=== PATIENT | female | born 1950 | race Caucasian/White ===

== ENCOUNTER 2016-11-22 07:20 | Emergency (ER) | payer MEDICARE, OTHER ==
[2016-11-22] MEDS ORDERED: solu-CORTEF 250MG IM ONE (08:00)
[2016-11-22] MEDS ORDERED: solu-CORTEF 250MG ONE (08:03)
--- NOTE | 2016-11-22 08:08 | ERPHSYRPT ---
- History of Present Illness Time Seen by Provider: 11/22/16 08:03 Source: patient Exam Limitations: no limitations Patient Subjective Stated Complaint: pt reports right arm pain beginning on -denies injury-reports difficutly closing hand-pt has hx of RA Triage Nursing Assessment: pt pale warm et dry-a & o x 3-no obvious injury-pt denies injury-radial pulse regular-swelling noted to hand-pt instructed to take splint off during triage Physician History: pt reports right arm pain beginning on -denies injury-reports difficutly closing hand-pt has hx of RA. Occurred: last week Method of Injury: other (RA flare up) Quality: constant, stabbing, throbbing Severity of Pain-Max: severe Severity of Pain-Current: severe Extremities Pain Location: wrist: right, hand: right Modifying Factors: Improves With: nothing Associated Symptoms: none Body Map: 1 - swelling Allergies/Adverse Reactions: Tetracyclines Allergy (Severe, Verified 11/22/16 07:37) Swelling tramadol Allergy (Severe, Verified 11/22/16 07:37) Shortness of Breath abatacept [From Orencia] Allergy (Intermediate, Verified 11/22/16 07:37) Itching ciprofloxacin Allergy (Intermediate, Verified 11/22/16 07:37) Itching hydroxychloroquine sulfate [From Plaquenil] Allergy (Intermediate, Verified 07:37) Rash phenazopyridine HCl [From Pyridium] Allergy (Intermediate, Verified 11/22/16 07: 37) Rash Sulfa (Sulfonamide Antibiotics) Allergy (Intermediate, Verified 11/22/16 07:37) Rash hazelnut Allergy (Verified 11/22/16 07:37) oxycodone HCl [From OxyContin] Adverse Reaction (Intermediate, Verified 07:37) HALLUCINATION peanut Adverse Reaction (Intermediate, Verified 11/22/16 07:37) EYE EDEMA Home Medications: Citalopram Hydrobromide [Citalopram HBr] 10 mg PO DAILY 01/21/15 [History] Gabapentin [Neurontin] 300 mg PO TID 01/21/15 [History] Hydrocodone Bit/Acetaminophen [Hydrocodon-Acetaminophn 10-325] 1 each PO UD PRN 01/21/15 [History] Leucovorin Calcium 5 mg PO UD 01/21/15 [History] Lisinopril/Hydrochlorothiazide [Lisinopril-Hctz 20-12.5 mg Tab] 1 each PO DAILY 01/21/15 [History] Methotrexate Sodium [Methotrexate] 2.5 mg PO UD 01/21/15 [History] Calcium [Hi-Marty] 1 tab PO DAILY 01/15/16 [History] Magnesium 1 tab PO DAILY 01/15/16 [History] Vit C/E/Zn/Coppr/Lutein/Zeaxan [Preservision Areds 2 Softgel] 1 tab PO DAILY [History] Hx Tetanus, Diphtheria Vaccination/Date Given: Yes Hx Influenza Vaccination/Date Given: No Hx Pneumococcal Vaccination/Date Given: No Immunizations Up to Date: Yes - Review of Systems Constitutional: No Fever, No Chills Eyes: No Symptoms Ears, Nose, & Throat: No Symptoms Respiratory: No Cough, No Dyspnea Cardiac: No Chest Pain, No Edema, No Syncope Abdominal/Gastrointestinal: No Abdominal Pain, No Nausea, No Vomiting, No Diarrhea Genitourinary Symptoms: No Dysuria Musculoskeletal: Joint Redness, Joint Pain, Joint Swelling (right hand), No Back Pain, No Neck Pain Skin: No Rash Neurological: No Dizziness, No Focal Weakness, No Sensory Changes Psychological: No Symptoms Endocrine: No Symptoms All Other Systems: Reviewed and Negative - Past Medical History Pertinent Past Medical History: Yes Neurological History: No Pertinent History ENT History: Macular Degeneration Cardiac History: No Pertinent History Respiratory History: Sleep Apnea Endocrine Medical History: No Pertinent History Musculoskeletal History: Arthritis, Fibromyalgia, Rheumatoid Arthritis GI Medical History: No Pertinent History History: No Pertinent History Psycho-Social History: Depression Female Reproductive Disorders: No Pertinent History - Past Surgical History Past Surgical History: Yes Gastrointestinal: Cholecystectomy Musculoskeletal: Joint Replacement, Orthopedic Surgery Female Surgical History: Hysterectomy - Social History Smoking Status: Never smoker Exposure to second hand smoke: No Drug Use: none Patient Lives Alone: No - Nursing Vital Signs Nursing Vital Signs: Initial Vital Signs Temperature 98.4 F Temperature Source Oral Pulse Rate 65 Respiratory Rate 20 Blood Pressure [] 155/68 Pain Intensity 4 - Physical Exam General Appearance: no apparent distress Eyes, Ears, Nose, Throat Exam: normal ENT inspection Neck Exam: normal inspection Wrist Exam: limited ROM, soft tissue tenderness, swelling Hand Exam: limited ROM, soft tissue tenderness, stiffness, swelling SpO2: 96 Oxygen Delivery: Room Air - Course Nursing assessment & vital signs reviewed: Yes - Radiology Exams Wrist X-ray Interpretation: Reviewed by me (swollen metacarpophalangeal joints) Hand X-ray Interpretation: Reviewed by me (erosive joints) Ordered Tests: Active Orders 24 hr Category Date Time Status HAND (MINIMUM 3 VIEWS) Stat Exams 11/22/16 07:57 Taken Medication Summary Discontinued Medications Generic Name Dose Route Start Last Admin Trade Name Freq PRN Reason Stop Dose Admin Hydrocortisone Sodium Succinate 250 mg 11/22/16 08:00 11/22/16 08:06 Solu-Cortef 250mg IM 11/22/16 08:01 250 mg STAT ONE Administration Hydrocortisone Sodium Succinate Confirm 11/22/16 08:03 Solu-Cortef 250mg Administered 11/22/16 08:04 Dose 250 mg .ROUTE .STK-MED ONE - Progress Progress: improved, pain not gone completely Counseled pt/family regarding: diagnosis, need for follow-up, rad results - Departure Time of Disposition: 08:33 Departure Disposition: Home Clinical Impression: Rheumatoid arthritis flare Condition: Stable Critical Care Time: No Referrals: ANILA ALY [Primary Care Provider] - Additional Instructions: Please follow the instructions given to you. Please take your medication as prescribed if given. If symptoms recur or get worse, come back to the emergency room if you cannot reach your primary care physician, or call your primary care physician for an appointment. Again if your symptoms get worse, come back to the emergency room. Thanks for visiting emergency room, and let us take care of you.
[2016-11-22 08:52] VITALS: BP 151/62; PULSE 71; O2SAT 97
--- NOTE | 2016-11-22 10:09 | XRAY ---
Indication: Rheumatoid arthritis flare up. No known injury. Comparison: None 3 views of the right hand demonstrates mild osteopenia, mild degenerative changes of all IP joints, and moderate degenerative changes of first metacarpal multangular articulation. No other bony, articular, or soft tissue abnormalities.
== END 2016-11-22 08:51 | disposition home or self-care (01) ==
LOC: ED 07:20
DX: M06.9 Rheumatoid arthritis, unspecified (principal); M25.441 Effusion, right hand; M79.641 Pain in right hand
CPT/HCPCS: 73130; 96372; 99282; J1720

== ENCOUNTER 2020-04-23 12:00 | Observation (INO) | payer MEDICARE, OTHER ==
--- NOTE | 2020-04-23 12:36 | XRAY ---
Indication: Headache. Hypertension. Stroke. Multiple contiguous axial images obtained through the head without contrast. Comparison: None Age-appropriate global atrophy and minimal periventricular degenerative micro-ischemia bilaterally. Right basal ganglia and left external capsule remote appearing lacunar infarcts. No acute intracranial hemorrhage, abnormal extra-axial fluid collection, or mass effect. Fourth ventricle is midline without hydrocephalus. Bony calvarium intact. Tiny fluid leveling right sphenoid sinus. Partial opacification left mastoid air cells. Impression: 1. Nonacute senile brain. 2. Remote lacunar infarcts right basal ganglia and left external capsule. 3. Incidental right sphenoid sinus fluid leveling and partial opacification left mastoid air cells presumed inflammatory.
[2020-04-23 12:40] LABS: Absolute Neutrophil Ct (ANC) 3.11 (1.4-6.9); BASOPHIL % 0.7 % (0.0-0.4); Basophil (Absolute #) 0.04 (0-0.4); Eosinophil % 2.9 % (0.00-5.0); Eosinophil (Absolute #) 0.17 (0-0.5); Hematocrit 41.8 % (35-47); Hemoglobin 13.5 gm/dl (12.0-16.0); Lymphocyte (Absolute #) 1.84 (1.0-4.6); Lymphocytes % 31.1 % (24.0-44.0); Mean Cell Volume 95.7 fl (78-100); Mean Corpuscular Hemoglobin 30.9 pg (26-32); Mean Corpuscular Hgb Concent. 32.3 g/dl (32-36); Mean Platelet Volume 9.2 fl (7.5-11.0); Monocyte (Absolute #) 0.75 (0.0-1.3); Monocytes % 12.7 % (0.0-12.0); Neutrophil % 52.6 % (36.0-66.0); Platelet Count 261 K/mm3 (150-450); Red Blood Count 4.37 M/mm3 (4.1-5.4); Red Cell Distribution Width 13.9 % (11.5-14.0); White Blood Count 5.9 K/mm3 (4.0-10.5)
[2020-04-23 12:47] LABS: Appearance CLEAR (CLEAR); Bacteria RARE /HPF (NEGATIVE); Bilirubin NEGATIVE (NEGATIVE); Blood NEGATIVE Ery/ul (0-5); Epithelial Cells RARE /HPF (FEW); Glucose NEGATIVE (NEGATIVE); Ketones NEGATIVE (NEGATIVE); Leukocyte Esterase MODERATE (NEGATIVE); Nitrite NEGATIVE (NEGATIVE); Protein,Urine Dip NEGATIVE (Negative); Urobilinogen NEGATIVE mg/dL (0-1)
[2020-04-23] MEDS ORDERED: APRESOLINE 20 MG/ML INJ IV ONE (12:48)
[2020-04-23] MEDS ORDERED: APRESOLINE 20 MG/ML INJ ONE (12:51)
--- NOTE | 2020-04-23 12:52 | XRAY ---
Indication: Short of breath. Comparison: None Portable chest demonstrates normal heart and lungs. Bony thorax intact with minimal degenerative changes.
--- NOTE | 2020-04-23 12:57 | ERPHSYRPT ---
- History of Present Illness Time Seen by Provider: 04/23/20 12:15 Source: patient Exam Limitations: no limitations Patient Subjective Stated Complaint: HTN Triage Nursing Assessment: Patient brought to ED via w/c and transferred self to bed. Patient A+O X3. Patient's skin pink, warm and dry. Patient went to [facility] because she wasn't feeling right. [facility] sent patient down to ED due to HTN. Patient states she has a a throbbing headache and the back of her head feels numb 5/10. Patient able to CALIX well. accu check at this time 96. Lungs clear a/p martínez. No edema noted. Physician History: Patient is a 69-year-old female presents to our ED as referral from [facility] for evaluation of hypertension. Patient initially went to [facility] for further evaluation as she was experiencing a frontal headache and numbness to the back of her head. Symptoms started this morning. Symptoms are mild to moderate in intensity. No specific worsening or improving factors. No associated extremity numbness or weakness. No nausea or vomiting. No blurred vision. Timing/Duration: today Severity: moderate Modifying Factors: Improves With: nothing Associated Symptoms: No nausea, No vomiting, No abdominal pain, No shortness of breath, No chest pain, No loss of appetite, No rash, No syncope Allergies/Adverse Reactions: hazelnut Allergy (Severe, Verified 04/23/20 12:09) Tightness of Throat Tetracyclines Allergy (Severe, Verified 04/23/20 12:09) Anaphylactic Reaction tramadol Allergy (Severe, Verified 04/23/20 12:09) Shortness of Breath abatacept [From Orencia] Allergy (Intermediate, Verified 04/23/20 12:09) Itching ciprofloxacin Allergy (Intermediate, Verified 04/23/20 12:09) Itching hydroxychloroquine sulfate [From Plaquenil] Allergy (Intermediate, Verified 04/23/20 12:09) Rash phenazopyridine HCl [From Pyridium] Allergy (Intermediate, Verified 04/23/20 12:09) Rash Sulfa (Sulfonamide Antibiotics) Allergy (Intermediate, Verified 04/23/20 12:09) Rash oxycodone HCl [From OxyContin] Adverse Reaction (Intermediate, Verified 04/23/20 12:09) HALLUCINATION Home Medications: Gabapentin [Neurontin] 1,200 mg PO HS 01/21/15 [History] Hydrocodone Bit/Acetaminophen [Hydrocodon-Acetaminophn 10-325] 1 each PO QID 01/21/15 [History] Leucovorin Calcium 5 mg PO WEEKLY 01/21/15 [History] Lisinopril/Hydrochlorothiazide [Lisinopril-Hctz 20-12.5 mg Tab] 2 tablet PO DAILY 01/21/15 [History] metHOTREXate sodium [Methotrexate] 2.5 mg PO UD 01/21/15 [History] Vit C/E/Zn/Coppr/Lutein/Zeaxan [Preservision Areds 2 Softgel] 1 tab PO BID 01/15/16 [History] Aspirin EC 81 mg [Ecotrin 81 mg] 81 mg PO DAILY 04/10/19 [History] Aflibercept [Eylea] 2 mg IO UD 09/29/19 [History] Duloxetine HCl 30 mg [Cymbalta 30 MG Capsule] 30 mg PO DAILY 09/29/19 [H istory] Amoxicillin 500 mg PO UD 11/24/19 [History] Calcium Carbonate/Vitamin D3 [Calcium 500+D Tablet Chew] 2 tab PO BID 02/07/20 [History] Golimumab [Simponi] 100 mg IV UD 02/07/20 [History] Magnesium Oxide 400 mg [Mag-Ox 400] 400 mg PO DAILY 02/07/20 [History] Hx Tetanus, Diphtheria Vaccination/Date Given: Yes Hx Influenza Vaccination/Date Given: Yes Hx Pneumococcal Vaccination/Date Given: No Immunizations Up to Date: Yes Travel Risk - International Travel Have you traveled outside of the country in past 3 weeks: No - Coronavirus Screening Are you exhibiting any of the following symptoms?: No Symptoms: Headaches/Body Aches/Fatigue Close contact with a COVID-19 positive Pt in past 14-21 Days: No - Review of Systems Constitutional: No Symptoms, No Fever, No Chills Eyes: No Symptoms Ears, Nose, & Throat: No Symptoms Respiratory: No Symptoms, No Cough, No Dyspnea Cardiac: No Symptoms, No Chest Pain, No Edema, No Syncope Abdominal/Gastrointestinal: No Symptoms, No Abdominal Pain, No Nausea, No Vomiting, No Diarrhea Genitourinary Symptoms: No Symptoms, No Dysuria Musculoskeletal: No Symptoms, No Back Pain, No Neck Pain Skin: No Rash Neurological: No Symptoms, No Dizziness, No Focal Weakness, No Sensory Changes Psychological: No Symptoms Endocrine: No Symptoms Hematologic/Lymphatic: No Symptoms Immunological/Allergic: No Symptoms All Other Systems: Reviewed and Negative - Past Medical History Pertinent Past Medical History: Yes Neurological History: No Pertinent History ENT History: Cataracts, Macular Degeneration Cardiac History: Hypertension Respiratory History: No Pertinent History Endocrine Medical History: No Pertinent History Musculoskeletal History: Fibromyalgia, Rheumatoid Arthritis GI Medical History: No Pertinent History History: No Pertinent History Psycho-Social History: Depression Female Reproductive Disorders: Fibroids - Past Surgical History Past Surgical History: Yes Neuro Surgical History: No Pertinent History Cardiac: No Pertinent History Respiratory: No Pertinent History Gastrointestinal: Appendectomy, Cholecystectomy Genitourinary: No Pertinent History Musculoskeletal: Joint Replacement Female Surgical History: Hysterectomy Other Surgical History: martínez knee replacement, carpal tunnel on right , facial lift - Social History Smoking Status: Never smoker Exposure to second hand smoke: No Drug Use: none Patient Lives Alone: No - Nursing Vital Signs Nursing Vital Signs: Initial Vital Signs Pulse Rate 80 04/23/20 12:10 Respiratory Rate 19 04/23/20 12:10 Blood Pressure 228/90 04/23/20 12:10 O2 Sat by Pulse Oximetry 99 04/23/20 12:10 Pain Scale Pain Intensity 5 - Physical Exam General Appearance: no apparent distress, alert Eye Exam: PERRL/EOMI, eyes nml inspection Ears, Nose, Throat Exam: normal ENT inspection, TMs normal, pharynx normal, moist mucous membranes Neck Exam: normal inspection, non-tender, supple, full range of motion Respiratory Exam: normal breath sounds, lungs clear, No respiratory distress Cardiovascular Exam: regular rate/rhythm, normal heart sounds, normal peripheral pulses Gastrointestinal/Abdomen Exam: soft, normal bowel sounds, No tenderness, No mass Pelvic Exam: not done Back Exam: normal inspection, normal range of motion, No CVA tenderness, No vertebral tenderness Extremity Exam: normal inspection, normal range of motion, pelvis stable Neurologic Exam: alert, oriented x 3, cooperative, normal mood/affect, nml cerebellar function, nml station & gait, sensation nml, No motor deficits, No sensory deficit, No disoriented, No confusion, No intoxicated appearance, No motor weakness, No facial droop, No abnormal gait, No abnormal cerebellar tests, No abnormal sales analyst II-XII Skin Exam: normal color, warm, dry, No rash Lymphatic Exam: No adenopathy SpO2 Interpretation: normal SpO2: 97 O2 Delivery: Room Air - Course Nursing assessment & vital signs reviewed: Yes EKG Interpreted by Me: RATE (64), Sinus Rhythm, NORMAL AXIS, NORMAL INTERVALS - Radiology Exams Chest X-ray Interpretation: Teleradiologist Report (Portable chest demonstrates normal heart and lungs. Bony thorax intact with minimal degenerative changes.) - CT Exams Head CT Interpretation: Tele-radiologist Report (Acute senile brain, remote lacunar infarcts right basal ganglia and left external capsule, incidental right s phenoid sinus fluid leveling and partition opacification of left mastoid air cells presumably inflammatory.) Ordered Tests: Active Orders 24 hr Category Date Time Status Linen Supervisor STAT Care 04/23/20 12:17 Active EKG-ER Only STAT Care 04/23/20 12:15 Active IV Insertion STAT Care 04/23/20 12:15 Active Pulse Oximetry (ED) STAT Care 04/23/20 12:15 Active CHEST 1 VIEW (PORTABLE) Stat Exams 04/23/20 12:17 Completed HEAD WITHOUT CONTRAST [CT] Stat Exams 04/23/20 12:14 Completed CBC W DIFF Stat Lab 04/23/20 12:30 Completed CMP Stat Lab 04/23/20 12:30 Completed MAGNESIUM Stat Lab 04/23/20 12:30 Completed NT PRO BNP Stat Lab 04/23/20 12:30 Completed TROPONIN Q3H Lab 04/23/20 12:30 Completed TROPONIN Q3H Lab 04/23/20 15:30 Ordered TROPONIN Q3H Lab 04/23/20 18:30 Ordered TROPONIN Q3H Lab 04/23/20 21:30 Ordered TROPONIN Q3H Lab 04/24/20 00:30 Ordered UA W/RFX UR CULTURE Stat Lab 04/23/20 12:30 Completed Transfer Order Routine Transfer 04/23/20 Ordered Medication Summary Generic Name Dose Route Start Last Admin Trade Name Freq PRN Reason Stop Dose Admin Ceftriaxone Sodium/Dextrose 1 g in 50 mls @ 100 mls/hr 04/23/20 13:29 04/23/20 13:45 Rocephin 1 Gm-D5w 50 Ml Bag IV 04/23/20 13:58 100 ml/hr STAT STA 100 mls/hr Administration Discontinued Medications Generic Name Dose Route Start Last Admin Trade Name Freq PRN Reason Stop Dose Admin Aspirin 324 mg 04/23/20 13:47 Baby Aspirin 81 Mg Chew PO 04/23/20 13:48 STAT ONE Hydralazine HCl 10 mg 04/23/20 12:48 04/23/20 12:53 Apresoline 20 Mg/Ml Inj IV 04/23/20 12:49 10 mg STAT ONE Administration Hydralazine HCl Confirm 04/23/20 12:51 Apresoline 20 Mg/Ml Inj Administered 04/23/20 12:52 Dose 20 mg .ROUTE .STK-MED ONE Ceftriaxone Sodium/Dextrose Confirm 04/23/20 13:42 Rocephin 1 Gm-D5w 50 Ml Bag Administered 04/23/20 13:43 Dose 1 g in 50 mls @ ud IV .STK-MED ONE Lab/Rad Data: Laboratory Result Diagrams 04/23/20 12:30 04/23/20 12:30 Laboratory Results 04/23/20 04/23/20 04/23/20 Range/Units 12:30 12:30 12:30 WBC (4.0-10.5) K/mm3 RBC (4.1-5.4) M/mm3 Hgb (12.0-16.0) gm/dl Hct (35-47) % MCV (78-100) fl MCH (26-32) pg MCHC (32-36) g/dl RDW (11.5-14.0) % Plt Count (150-450) K/mm3 MPV (7.5-11.0) fl Gran % (36.0-66.0) % Eos # (Auto) (0-0.5) Absolute Lymphs (auto) (1.0-4.6) Absolute Monos (auto) (0.0-1.3) Lymphocytes % (24.0-44.0) % Monocytes % (0.0-12.0) % Eosinophils % (0.00-5.0) % Basophils % (0.0-0.4) % Absolute Granulocytes (1.4-6.9) Basophils # (0-0.4) Sodium 141 (137-145) mmol/L Potassium 3.7 (3.5-5.1) mmol/L Chloride 103 (98-107) mmol/L Carbon Dioxide 31 H (22-30) mmol/L Anion Gap 9.8 (5-15) MEQ/L BUN 17 (7-17) mg/dL Creatinine 0.64 (0.52-1.04) mg/dL Estimated GFR > 60.0 ML/MIN Glucose 99 (74-106) mg/dL Calcium 9.8 (8.4-10.2) mg/dL Magnesium 2.2 (1.6-2.3) mg/dL Total Bilirubin 0.40 (0.2-1.3) mg/dL AST 31 (14-36) U/L ALT 24 (0-35) U/L Alkaline Phosphatase 93 (38-126) U/L Troponin I < 0.012 (0.000-0.034) ng/mL NT-Pro-B Natriuret Pep 270 (0-900) pg/mL Serum Total Protein 7.9 (6.3-8.2) g/dL Albumin 4.6 (3.5-5.0) g/dL Urine Color YELLOW (YELLOW) Urine Appearance CLEAR (CLEAR) Urine pH 7.0 (5-6) Ur Specific Gilmer 1.010 (1.005-1.025) Urine Protein NEGATIVE (Negative) Urine Ketones NEGATIVE (NEGATIVE) Urine Blood NEGATIVE (0-5) Joseluis/ul Urine Nitrite NEGATIVE (NEGATIVE) Urine Bilirubin NEGATIVE (NEGATIVE) Urine Urobilinogen NEGATIVE (0-1) mg/dL Ur Leukocyte Esterase MODERATE (NEGATIVE) Urine WBC (Auto) 6-10 (0-5) /HPF Urine RBC (Auto) 3-5 (0-2) /HPF U Epithel Cells (Auto) RARE (FEW) /HPF Urine Bacteria (Auto) RARE (NEGATIVE) /HPF Urine Culture Reflexed NO (NO) Urine Glucose NEGATIVE (NEGATIVE) mg/dL 04/23/20 Range/Units 12:30 WBC 5.9 (4.0-10.5) K/mm3 RBC 4.37 (4.1-5.4) M/mm3 Hgb 13.5 (12.0-16.0) gm/dl Hct 41.8 (35-47) % MCV 95.7 (78-100) fl MCH 30.9 (26-32) pg MCHC 32.3 (32-36) g/dl RDW 13.9 (11.5-14.0) % Plt Count 261 (150-450) K/mm3 MPV 9.2 (7.5-11.0) fl Gran % 52.6 (36.0-66.0) % Eos # (Auto) 0.17 (0-0.5) Absolute Lymphs (auto) 1.84 (1.0-4.6) Absolute Monos (auto) 0.75 (0.0-1.3) Lymphocytes % 31.1 (24.0-44.0) % Monocytes % 12.7 H (0.0-12.0) % Eosinophils % 2.9 (0.00-5.0) % Basophils % 0.7 (0.0-0.4) % Absolute Granulocytes 3.11 (1.4-6.9) Basophils # 0.04 (0-0.4) Sodium (137-145) mmol/L Potassium (3.5-5.1) mmol/L Chloride (98-107) mmol/L Carbon Dioxide (22-30) mmol/L Anion Gap (5-15) MEQ/L BUN (7-17) mg/dL Creatinine (0.52-1.04) mg/dL Estimated GFR ML/MIN Glucose (74-106) mg/dL Calcium (8.4-10.2) mg/dL Magnesium (1.6-2.3) mg/dL Total Bilirubin (0.2-1.3) mg/dL AST (14-36) U/L ALT (0-35) U/L Alkaline Phosphatase (38-126) U/L Troponin I (0.000-0.034) ng/mL NT-Pro-B Natriuret Pep (0-900) pg/mL Serum Total Protein (6.3-8.2) g/dL Albumin (3.5-5.0) g/dL Urine Color (YELLOW) Urine Appearance (CLEAR) Urine pH (5-6) Ur Specific Gilmer (1.005-1.025) Urine Protein (Negative) Urine Ketones (NEGATIVE) Urine Blood (0-5) Joseluis/ul Urine Nitrite (NEGATIVE) Urine Bilirubin (NEGATIVE) Urine Urobilinogen (0-1) mg/dL Ur Leukocyte Esterase (NEGATIVE) Urine WBC (Auto) (0-5) /HPF Urine RBC (Auto) (0-2) /HPF U Epithel Cells (Auto) (FEW) /HPF Urine Bacteria (Auto) (NEGATIVE) /HPF Urine Culture Reflexed (NO) Urine Glucose (NEGATIVE) mg/dL - Progress Progress: improved Progress Note: 04/23/20 13:39 Patient reassessed. She feels somewhat better. Patient received hydralazine for hypertension. Blood pressure improved. CT head reveals a sinusitis as well as old lacunar infarct, right basal ganglia and left external capsule. UA suggestive of urinary tract infection. Patient received a dose of Rocephin. In light of her symptoms, elevated blood pressure and CT findings we will admit patient for possible TIA/hypertensive urgency. Case discussed with Dr. Jonas who accepts admission to observation. Plan of care discussed with patient. She agrees to admission to [facility] for further evaluation and treatment. 04/23/20 13:42 04/23/20 13:[address] Dakota Will see patient in: hospital (observation) Counseled pt/family regarding: lab results, diagnosis, need for follow-up, rad results - Departure Departure Disposition: Observation Clinical Impression: Hypertensive urgency, Sinusitis, UTI (urinary tract infection), TIA (transient ischemic attack), Lacunar infarction Condition: Stable Critical Care Time: Yes Critical Care Time(excluding separately billable procedures): Critical 75-104 mins Referrals: ANILA ALY [Primary Care Provider] -
[2020-04-23 13:00] LABS: ALBUMIN 4.6 g/dL (3.5-5.0); ALKALINE PHOSPHATASE 93 U/L (38-126); ANION GAP 9.8 MEQ/L (5-15); BLOOD UREA NITROGEN 17 mg/dL (7-17); CHLORIDE 103 mmol/L (98-107); Calcium 9.8 mg/dL (8.4-10.2); Carbon Dioxide 31 mmol/L (22-30); Creatinine 1 0.64 mg/dL (0.52-1.04); Glucose 99 mg/dL (74-106); MAGNESIUM 2.2 mg/dL (1.6-2.3); NT PRO BNP 270 pg/mL (0-900); Potassium 3.7 mmol/L (3.5-5.1); SGOT/AST 31 U/L (14-36); SGPT/ALT 24 U/L (0-35); SODIUM 141 mmol/L (137-145); Total Protein 7.9 g/dL (6.3-8.2)
[2020-04-23] MEDS ORDERED: ROCEPHIN 1 Gm-D5w 50 ml Bag** 1 G/50 ML IVPB IV STA (13:29)
[2020-04-23] MEDS ORDERED: ROCEPHIN 1 Gm-D5w 50 ml Bag** 1 G/50 ML IVPB IV ONE (13:42)
[2020-04-23] MEDS ORDERED: BABY ASPIRIN 81 MG CHEW PO ONE (13:47)
[2020-04-23] MEDS ORDERED: BABY ASPIRIN 81 MG CHEW ONE (13:53)
[2020-04-23] MEDS ORDERED: Sodium Chloride 0.9% 1000 ML 1,000 ML IV SCH (14:16)
[2020-04-23] MEDS ORDERED: ULTRAM 50 MG PO PRN (14:39)
[2020-04-23] MEDS ORDERED: APRESOLINE 20 MG/ML INJ IV PRN (14:40)
[2020-04-23] MEDS ORDERED: xanAX 0.5 MG PO ONE (15:17)
[2020-04-23] MEDS ORDERED: GOLIMUMAB IV SCH (16:00)
[2020-04-23] MEDS ORDERED: AMOXICILLIN 500 MG PO SCH (16:00)
[2020-04-23] MEDS ORDERED: AFLIBERCEPT IO SCH (16:00)
[2020-04-23] MEDS ORDERED: LEUCOVORIN CALCIUM 5 MG PO SCH (16:00)
[2020-04-23] MEDS ORDERED: MEDICATION INTERVENTION PO SCH (16:15)
[2020-04-23] MEDS ORDERED: MEDICATION INTERVENTION MC SCH (16:15)
[2020-04-23] MEDS: Norco 10/325 MG Tablet PO SCH ×2 (17:04→21:35)
[2020-04-23] MEDS: Ocuvite Tablet PO SCH (21:35)
[2020-04-23] MEDS: Neurontin 400 MG PO SCH (21:35)
[2020-04-23] MEDS: xanAX 0.5 MG PO PRN (21:46)
[2020-04-23] MEDS ORDERED: xanAX 0.5 MG PO SCH (22:00)
[2020-04-23] MEDS ORDERED: [UNRECOGNIZED DRUG - OTHER] PO SCH (22:00)
[2020-04-24 04:50] LABS: Absolute Neutrophil Ct (ANC) 2.91 (1.4-6.9); BASOPHIL % 0.2 % (0.0-0.4); Basophil (Absolute #) 0.01 (0-0.4); Eosinophil % 3.2 % (0.00-5.0); Eosinophil (Absolute #) 0.18 (0-0.5); Hematocrit 38.9 % (35-47); Hemoglobin 12.8 gm/dl (12.0-16.0); Lymphocyte (Absolute #) 1.77 (1.0-4.6); Lymphocytes % 31.4 % (24.0-44.0); Mean Cell Volume 96.5 fl (78-100); Mean Corpuscular Hemoglobin 31.8 pg (26-32); Mean Corpuscular Hgb Concent. 32.9 g/dl (32-36); Mean Platelet Volume 9.2 fl (7.5-11.0); Monocyte (Absolute #) 0.77 (0.0-1.3); Monocytes % 13.7 % (0.0-12.0); Neutrophil % 51.5 % (36.0-66.0); Platelet Count 253 K/mm3 (150-450); Red Blood Count 4.03 M/mm3 (4.1-5.4); Red Cell Distribution Width 14.1 % (11.5-14.0); White Blood Count 5.6 K/mm3 (4.0-10.5)
[2020-04-24 05:35] LABS: ANION GAP 9.2 MEQ/L (5-15); BLOOD UREA NITROGEN 25 mg/dL (7-17); CHLORIDE 102 mmol/L (98-107); Calcium 9.2 mg/dL (8.4-10.2); Carbon Dioxide 32 mmol/L (22-30); Creatinine 1 0.79 mg/dL (0.52-1.04); Glucose 105 mg/dL (74-106); Potassium 3.9 mmol/L (3.5-5.1); SODIUM 139 mmol/L (137-145); TROPONIN < 0.012 ng/mL (0.000-0.034)
[2020-04-24] MEDS: Norco 10/325 MG Tablet PO SCH ×4 (07:39→21:05)
[2020-04-24] MEDS ORDERED: HYDROCHLOROTHIAZIDE PO SCH (10:00)
[2020-04-24] MEDS ORDERED: [UNRECOGNIZED DRUG - OTHER] PO SCH (10:00)
[2020-04-24] MEDS ORDERED: LISINOPRIL PO SCH (10:00)
[2020-04-24] MEDS: ECOTRIN 81 MG PO SCH (10:40)
[2020-04-24] MEDS: FOLATE 1 MG PO SCH (10:40)
[2020-04-24] MEDS: MAG-OX 400 PO SCH (10:40)
[2020-04-24] MEDS: hydroDIURIL 25 MG PO SCH (10:40)
[2020-04-24] MEDS: Cymbalta 30 MG Capsule PO SCH (10:40)
[2020-04-24] MEDS: Ocuvite Tablet PO SCH ×2 (10:40→21:04)
[2020-04-24] MEDS: Zestril 20 MG PO SCH (10:41)
[2020-04-24] MEDS: xanAX 0.5 MG PO PRN ×2 (11:45→21:05)
--- NOTE | 2020-04-24 12:52 | XRAY ---
Indication: Hypertension. Two-dimensional query some performed. Comparison: None Examination of the right carotid circulation demonstrates tortuous common carotid artery. Visualized common carotid, bulb, internal carotid, and external carotid arteries are widely patent. PSV of the CCA is 97 cm/s. PSV of the ICA is 95 cm/s. ICA/CCA ratio is 1.0. Normal antegrade vertebral artery flow. Examination of the left carotid circulation demonstrates minimal eccentric calcified plaquing at the level of the bulb. Remaining common carotid, internal carotid, and external carotid arteries are widely patent. PSV of the CCA is 104 cm/s. PSV of the ICA is 80 cm/s. ICA/CCA ratio is 0.8. Normal antegrade vertebral artery flow. Impression: Minimal calcified plaquing left carotid bulb and widely patent right carotid circulation. Velocity measurements and ratios are negative for hemodynamically significant flow-limiting stenosis.
[2020-04-24] MEDS ORDERED: ROCEPHIN 1 Gm-D5w 50 ml Bag** 1 G/50 ML IVPB IV SCH (14:00)
--- NOTE | 2020-04-24 14:19 | PCM.HP ---
History of Present Illness - Chief Complaint Chief Complaint: TIA History of Present Illness: is a 69 year old female seen and examined this am following ER admission for HTN urgency/crisis and UTI. Patient reports that she was feeling unwell yesterday and went to urgent care. Her bp was found to be extremely elevated and she was sent to ER. Patient reports that she has had two similar episodes in the past and she thought she was having a stroke. Patient reports that she has been taking her bp meds as directed and has not missed any doses. She denies any recent medication changes. She reports that she has felt stressed with a few things including the covid. Patient reports that during these episodes she has a sensation that starts at the occiput region. She has experienced some vasomotor symptoms as well. She denies any diaphoresis during these episodes. She denies anginal type symptoms. Patient reports when she had TIAs in the past that no one else was present and she was unaware of any slurred speech or other abnormalities. Patient reports she does have a hx of RA. Medications & Allergies Home Medications: Home Medication List Gabapentin [Neurontin] 1,200 mg PO HS 01/21/15 [History Confirmed 04/23/20] Hydrocodone Bit/Acetaminophen [Hydrocodon-Acetaminophn 10-325] 1 each PO QID 01/21/15 [History Confirmed 04/23/20] Leucovorin Calcium 5 mg PO WEEKLY 01/21/15 [History Confirmed 04/23/20] Lisinopril/Hydrochlorothiazide [Lisinopril-Hctz 20-12.5 mg Tab] 2 tablet PO DAILY 01/21/15 [History Confirmed 04/23/20] metHOTREXate sodium [Methotrexate] 2.5 mg PO UD 01/21/15 [History Confirmed 04/23/20] Vit C/E/Zn/Coppr/Lutein/Zeaxan [Preservision Areds 2 Softgel] 1 tab PO BID 01/15/16 [History Confirmed 04/23/20] Aspirin EC 81 mg [Ecotrin 81 mg] 81 mg PO DAILY 04/10/19 [History Confirmed 04/23/20] Aflibercept [Eylea] 2 mg IO UD 09/29/19 [History Confirmed 04/23/20] Duloxetine HCl 30 mg [Cymbalta 30 MG Capsule] 30 mg PO DAILY 09/29/19 [History Confirmed 04/23/20] Amoxicillin 500 mg PO UD 11/24/19 [History Confirmed 04/23/20] Golimumab [Simponi] 100 mg IV UD 02/07/20 [History Confirmed 04/23/20] Magnesium Oxide 400 mg [Mag-Ox 400] 400 mg PO DAILY 02/07/20 [History Confirmed 04/23/20] Allergies/Adverse Reactions: Allergies Allergy/AdvReac Type Severity Reaction Status Date / Time hazelnut Allergy Severe Tightness Verified 04/23/20 12:09 of Throat Tetracyclines Allergy Severe Anaphylactic Verified 04/23/20 12:09 Reaction tramadol Allergy Severe Shortness Verified 04/23/20 12:09 of Breath abatacept [From Orencia] Allergy Intermediate Itching Verified 04/23/20 12:09 ciprofloxacin Allergy Intermediate Itching Verified 04/23/20 12:09 hydroxychloroquine sulfate Allergy Intermediate Rash Verified 04/23/20 12:09 [From Plaquenil] phenazopyridine HCl Allergy Intermediate Rash Verified 04/23/20 12:09 [From Pyridium] Sulfa (Sulfonamide Allergy Intermediate Rash Verified 04/23/20 12:09 Antibiotics) oxycodone HCl AdvReac Intermediate HALLUCINATI Verified 04/23/20 12:09 [From OxyContin] ON - Past Medical History Past Medical History: Yes Neurological History: No Pertinent History, TIA ENT History: Cataracts, Macular Degeneration Cardiac History: Hypertension Respiratory History: No Pertinent History, Sleep Apnea Endocrine Medical History: No Pertinent History Musculoskelatal History: Fibromyalgia, Rheumatoid Arthritis GI Medical History: No Pertinent History History: No Pertinent History Pyscho-Social History: Depression Reproductive Disorders: Fibroids - Female History Are you now?: No - Past Surgical History Past Surgical History: Yes Neuro Surgical History: No Pertinent History Cardiac History: No Pertinent History Respiratory Surgery: No Pertinent History GI Surgical History: Appendectomy, Cholecystectomy Genitourinary Surgical Hx: No Pertinent History Musculskeletal Surgical Hx: Joint Replacement Female Surgical History: Hysterectomy Other Surgical History: martínez knee replacement, carpal tunnel on right , facial lift - Social History Smoking Status: Former smoker Exposure to second hand smoke: No Alcohol: None Drug Use: none - Physical Exam Vital Signs: Vital Signs - 24 hr Temp Pulse Resp BP Pulse Ox 04/24/20 12:00 98.9 F 91 H 16 131/63 96 04/24/20 07:45 98.0 F 103 H 131/66 98 04/24/20 07:15 98 04/24/20 04:00 97.6 F 85 14 131/64 95 04/23/20 23:46 97.2 F 77 24 133/70 95 04/23/20 20:09 93 L 04/23/20 20:00 97.8 F 84 17 116/54 94 L 04/23/20 14:24 98.4 F 71 18 188/79 98 General Appearance: mild distress, anxiety Neurologic Exam: alert, oriented x 3, cooperative, compliance officer II-XII nml as tested, depressed mood/affect, No motor weakness, No facial droop, No slurred speech Eye Exam: eyes nml inspection, No scleral icterus Ears, Nose, Throat Exam: moist mucous membranes Neck Exam: No carotid bruit Respiratory Exam: normal breath sounds, No chest tenderness, No respiratory distress, No diminished breath sounds, No wheezing Cardiovascular Exam: regular rate/rhythm, normal heart sounds, No murmur, No friction rub, No gallop Gastrointestinal/Abdomen Exam: soft, normal bowel sounds, No tenderness, No distention Extremity Exam: normal inspection, normal range of motion Skin Exam: normal color, warm, dry, No rash Results - Labs Lab/Micro Results: Lab Results-Last 24 Hours 04/23/20 04/23/20 04/23/20 Range/Units 17:20 18:50 21:30 WBC (4.0-10.5) K/mm3 RBC (4.1-5.4) M/mm3 Hgb (12.0-16.0) gm/dl Hct (35-47) % MCV (78-100) fl MCH (26-32) pg MCHC (32-36) g/dl RDW (11.5-14.0) % Plt Count (150-450) K/mm3 MPV (7.5-11.0) fl Gran % (36.0-66.0) % Eos # (Auto) (0-0.5) Absolute Lymphs (auto) (1.0-4.6) Absolute Monos (auto) (0.0-1.3) Lymphocytes % (24.0-44.0) % Monocytes % (0.0-12.0) % Eosinophils % (0.00-5.0) % Basophils % (0.0-0.4) % Absolute Granulocytes (1.4-6.9) Basophils # (0-0.4) Sodium (137-145) mmol/L Potassium (3.5-5.1) mmol/L Chloride (98-107) mmol/L Carbon Dioxide (22-30) mmol/L Anion Gap (5-15) MEQ/L BUN (7-17) mg/dL Creatinine (0.52-1.04) mg/dL Estimated GFR ML/MIN Glucose (74-106) mg/dL Calcium (8.4-10.2) mg/dL Troponin I < 0.012 < 0.012 < 0.012 (0.000-0.034) ng/mL 04/24/20 04/24/20 04/24/20 Range/Units 00:35 04:35 04:35 WBC 5.6 (4.0-10.5) K/mm3 RBC 4.03 L (4.1-5.4) M/mm3 Hgb 12.8 (12.0-16.0) gm/dl Hct 38.9 (35-47) % MCV 96.5 (78-100) fl MCH 31.8 (26-32) pg MCHC 32.9 (32-36) g/dl RDW 14.1 H (11.5-14.0) % Plt Count 253 (150-450) K/mm3 MPV 9.2 (7.5-11.0) fl Gran % 51.5 (36.0-66.0) % Eos # (Auto) 0.18 (0-0.5) Absolute Lymphs (auto) 1.77 (1.0-4.6) Absolute Monos (auto) 0.77 (0.0-1.3) Lymphocytes % 31.4 (24.0-44.0) % Monocytes % 13.7 H (0.0-12.0) % Eosinophils % 3.2 (0.00-5.0) % Basophils % 0.2 (0.0-0.4) % Absolute Granulocytes 2.91 (1.4-6.9) Basophils # 0.01 (0-0.4) Sodium 139 (137-145) mmol/L Potassium 3.9 (3.5-5.1) mmol/L Chloride 102 (98-107) mmol/L Carbon Dioxide 32 H (22-30) mmol/L Anion Gap 9.2 (5-15) MEQ/L BUN 25 H (7-17) mg/dL Creatinine 0.79 (0.52-1.04) mg/dL Estimated GFR > 60.0 ML/MIN Glucose 105 (74-106) mg/dL Calcium 9.2 (8.4-10.2) mg/dL Troponin I < 0.012 < 0.012 (0.000-0.034) ng/mL - Radiology Impressions Radiology Exams & Impressions: Radiology Procedures Category Date Time Status CAROTID BILATERAL [US] Routine Exams 04/24/20 10:47 Completed CHEST 1 VIEW (PORTABLE) Stat Exams 04/23/20 12:17 Completed ECHO W/2D AND DOPPLER [US] Routine Exams 04/24/20 10:47 Taken HEAD WITHOUT CONTRAST [CT] Stat Exams 04/23/20 12:14 Completed MRI BRAIN W/O CONTRAST [MRI] Routine Exams 04/24/20 09:33 Ordered - Other Procedures and Tests Respiratory Therapy 04/24/20 02:46 BiPap/CPAP ROUTINE Assessment/Plan (1) Hypertensive urgency Current Visit: Yes Status: Acute Assessment & Plan: Unsure etiology as patient had taken her routine medication. She does have hx of HTN that has been well controlled on her medication. NO recent dose changes. Patient's bp improved following adminstration of hydralazine in ER and xanax. She reports her symptoms have mostly resolved. Will continue to monitor bp. Patient will stay on routine bp meds and prn hydralazine as needed. Code(s): I16.0 - HYPERTENSIVE URGENCY (2) Lacunar infarction Current Visit: Yes Status: Acute Assessment & Plan: Patient's CT shows remote lacunar infarct. She reports taking aspirin. Code(s): I63.81 - OTHER CEREB INFRC DUE TO OCCLS OR STENOSIS OF SMALL ARTERY (3) Sinusitis Current Visit: Yes Status: Acute Assessment & Plan: Noted on CT scan. Patient is currently on rocephin for UTI which would tx underlying sinusitis Code(s): J32.9 - CHRONIC SINUSITIS, UNSPECIFIED (4) TIA (transient ischemic attack) Current Visit: Yes Status: Acute Assessment & Plan: Possible TIA. MRI ordered and was neg. Patient has some remote infarcts. US of carotid shows a plaque on Left carotid but no significant stenosis. Will have patient follow up with cardiology Code(s): G45.9 - TRANSIENT CEREBRAL ISCHEMIC ATTACK, UNSPECIFIED (5) UTI (urinary tract infection) Current Visit: Yes Status: Acute Assessment & Plan: Culture pending. Patient got second dose of Rocephin today. Will get third dose tomorrow which should complete tx. Patient was asymptomatic Code(s): N39.0 - URINARY TRACT INFECTION, SITE NOT SPECIFIED (6) Anxiety Current Visit: Yes Status: Acute Assessment & Plan: Patient reports being more stressed. She became teary eyed when talking with the nurse. She required xanax to help relax her. Will continue to monitor for worsening symptoms Code(s): F41.9 - ANXIETY DISORDER, UNSPECIFIED
--- NOTE | 2020-04-24 15:07 | XRAY ---
Indication: Headache. High blood pressure. Sagittal, coronal, and axial MRI brain was performed without contrast using T1, T2, FLAIR, diffusion, and ADC sequences. Comparison: None Age-appropriate global atrophy with mild periventricular degenerative micro-ischemia signal bilaterally. No acute intracranial hemorrhage, abnormal extra-axial fluid collection, or mass effect. Diffusion images are negative for restricted signal. Fourth ventricle is midline without hydrocephalus. 7/8 cranial nerve complex bilaterally symmetric. Normal flow void signal within the major intracerebral circulation. Normal appearing craniocervical junction and sella turcica. Minimal mucosal thickening both ethmoid sinuses and right sphenoid sinus fluid leveling. 6 mm left sphenoid sinus polyp/retention cyst. Mastoid air cells demonstrates fluid signal, left greater than right. Impression: 1. No acute intracranial abnormalities or evidence for evolving large vessel territorial stroke. 2. Atrophy and degenerative micro-ischemia within normal limits for patient's age. 3. Incidental paranasal sinus disease. 4. Fluid signal in mastoid air cells left greater than right presumed inflammatory.
[2020-04-24] MEDS: Neurontin 400 MG PO SCH (21:05)
[2020-04-25 07:07] VITALS: O2SAT 96
[2020-04-25 07:27] VITALS: BP 137/65; PULSE 86
[2020-04-25] MEDS: MAG-OX 400 PO SCH (09:06)
[2020-04-25] MEDS: Zestril 20 MG PO SCH (09:06)
[2020-04-25] MEDS: ECOTRIN 81 MG PO SCH (09:06)
[2020-04-25] MEDS: Norco 10/325 MG Tablet PO SCH (09:06)
[2020-04-25] MEDS: hydroDIURIL 25 MG PO SCH (09:06)
[2020-04-25] MEDS: Ocuvite Tablet PO SCH (09:06)
[2020-04-25] MEDS: FOLATE 1 MG PO SCH (09:06)
[2020-04-25] MEDS: Cymbalta 30 MG Capsule PO SCH (09:06)
--- NOTE | 2020-04-25 09:25 | PCM.NOTE ---
Date and Time: 04/25/20904 OBJECTIVE DATA Vital Signs: Vital Signs - 24 hr Temp Pulse Resp BP Pulse Ox 04/25/20 07:26 98.8 F 86 18 137/65 96 04/25/20 07:07 96 04/25/20 04:00 97.1 F 66 14 113/55 95 04/25/20 00:00 97.1 F 69 20 116/56 97 04/24/20 20:00 98.2 F 80 18 127/60 95 04/24/20 19:44 94 L 04/24/20 16:00 98.9 F 96 H 16 133/71 97 04/24/20 12:00 98.9 F 91 H 16 131/63 96 Pain Assessment - Last Documented Pain Intensity 0 Pain Scale Used 0-10 Pain Scale Intake and Output: Intake & Output 04/23/20 04/24/20 04/25/20 04/26/20 06:59 06:59 06:59 06:59 Intake Total 1320 470 240 Output Total 450 Balance 870 470 240 Weight 75.4 kg Radiology Exams: Radiology Procedures Category Date Time Status CAROTID BILATERAL [US] Routine Exams 04/24/20 10:47 Completed CHEST 1 VIEW (PORTABLE) Stat Exams 04/23/20 12:17 Completed ECHO W/2D AND DOPPLER [US] Routine Exams 04/24/20 10:47 Taken HEAD WITHOUT CONTRAST [CT] Stat Exams 04/23/20 12:14 Completed MRI BRAIN W/O CONTRAST [MRI] Routine Exams 04/24/20 09:33 Completed Assessment/Plan (1) Hypertensive urgency Current Visit: Yes Status: Acute Code(s): I16.0 - HYPERTENSIVE URGENCY (2) Lacunar infarction Current Visit: Yes Status: Acute Code(s): I63.81 - OTHER CEREB INFRC DUE TO OCCLS OR STENOSIS OF SMALL ARTERY (3) Sinusitis Current Visit: Yes Status: Acute Code(s): J32.9 - CHRONIC SINUSITIS, UNSPECIFIED (4) TIA (transient ischemic attack) Current Visit: Yes Status: Acute Code(s): G45.9 - TRANSIENT CEREBRAL ISCHEMIC ATTACK, UNSPECIFIED (5) UTI (urinary tract infection) Current Visit: Yes Status: Acute Code(s): N39.0 - URINARY TRACT INFECTION, SITE NOT SPECIFIED (6) Anxiety Current Visit: Yes Status: Acute Code(s): F41.9 - ANXIETY DISORDER, UNSPECIFIED
--- NOTE | 2020-04-25 10:18 | PCM.DS ---
Discharge Summary Date of Admission: 04/23/20 14:14 Admitting Physician: EVELYN PADILLA MD Primary Care Provider: ANILA ALY Allergies Allergies hazelnut Allergy (Severe, Verified 04/23/20 12:09) Tightness of Throat Tetracyclines Allergy (Severe, Verified 04/23/20 12:09) Anaphylactic Reaction tramadol Allergy (Severe, Verified 04/23/20 12:09) Shortness of Breath abatacept [From Orencia] Allergy (Intermediate, Verified 04/23/20 12:09) Itching ciprofloxacin Allergy (Intermediate, Verified 04/23/20 12:09) Itching hydroxychloroquine sulfate [From Plaquenil] Allergy (Intermediate, Verified 04/23/20 12:09) Rash phenazopyridine HCl [From Pyridium] Allergy (Intermediate, Verified 04/23/20 12:09) Rash Sulfa (Sulfonamide Antibiotics) Allergy (Intermediate, Verified 04/23/20 12:09) Rash oxycodone HCl [From OxyContin] Adverse Reaction (Intermediate, Verified 04/23/20 12:09) HALLUCINATION Hospital Summary - Vitals & Intake/Output Vital Signs: Vital Signs Temperature 98.8 F 04/25/20 07:26 Pulse Rate 86 04/25/20 07:26 Respiratory Rate 18 04/25/20 07:26 Blood Pressure 137/65 04/25/20 07:26 O2 Sat by Pulse Oximetry 96 04/25/20 07:26 Intake & Output: Intake & Output 04/22/20 04/23/20 04/24/20 04/25/20 11:59 11:59 11:59 11:59 Intake Total 1320 710 Output Total 450 Balance 870 710 Weight 75.4 kg - Lab Result Diagrams: 04/24/20 04:35 04/24/20 04:35 - Radiology Exams Ordered Rad Exams-Entire Visit: Radiology Procedures Category Date Time Status CAROTID BILATERAL [US] Routine Exams 04/24/20 10:47 Completed CHEST 1 VIEW (PORTABLE) Stat Exams 04/23/20 12:17 Completed ECHO W/2D AND DOPPLER [US] Routine Exams 04/24/20 10:47 Taken HEAD WITHOUT CONTRAST [CT] Stat Exams 04/23/20 12:14 Completed MRI BRAIN W/O CONTRAST [MRI] Routine Exams 04/24/20 09:33 Completed - Procedures and Test Procedures and Tests throughout Hospitalization: Therapy Orders & Screens 04/24/20 02:46 BiPap/CPAP ROUTINE Comment: Diagnosis: TIA Final Diagnosis/Problem List - Final Discharge Diagnosis/Problem (1) Hypertensive urgency Current Visit: Yes Status: Acute Code(s): I16.0 - HYPERTENSIVE URGENCY (2) Lacunar infarction Current Visit: Yes Status: Acute Code(s): I63.81 - OTHER CEREB INFRC DUE TO OCCLS OR STENOSIS OF SMALL ARTERY (3) Sinusitis Current Visit: Yes Status: Acute Code(s): J32.9 - CHRONIC SINUSITIS, UNSPECIFIED (4) TIA (transient ischemic attack) Current Visit: Yes Status: Acute Code(s): G45.9 - TRANSIENT CEREBRAL ISCHEMIC ATTACK, UNSPECIFIED (5) UTI (urinary tract infection) Current Visit: Yes Status: Acute Code(s): N39.0 - URINARY TRACT INFECTION, SITE NOT SPECIFIED (6) Anxiety Current Visit: Yes Status: Acute Code(s): F41.9 - ANXIETY DISORDER, UNSPECIFIED - Discharge Disposition: Home, Self-Care Condition: Stable Prescriptions: New Alprazolam [Xanax] 0.5 mg PO TID PRN 3 Days #9 tablet Continue Leucovorin Calcium 5 mg PO WEEKLY metHOTREXate sodium [Methotrexate] 2.5 mg PO UD Hydrocodone Bit/Acetaminophen [Hydrocodon-Acetaminophn 10-325] 1 each PO QID Gabapentin [Neurontin] 1,200 mg PO HS Lisinopril/Hydrochlorothiazide [Lisinopril-Hctz 20-12.5 mg Tab] 2 tablet PO DAILY Vit C/E/Zn/Coppr/Lutein/Zeaxan [Preservision Areds 2 Softgel] 1 tab PO BID Aspirin EC 81 mg [Ecotrin 81 mg] 81 mg PO DAILY Duloxetine HCl 30 mg [Cymbalta 30 MG Capsule] 30 mg PO DAILY Aflibercept [Eylea] 2 mg IO UD Amoxicillin 500 mg PO UD Magnesium Oxide 400 mg [Mag-Ox 400] 400 mg PO DAILY Golimumab [Simponi] 100 mg IV UD Instructions: Transient Ischemic Attack (DC) Additional Instructions: DR ALY IS BOOKED THROUGH [facility]. [facility] IS SENDING A NOTE TO DR. ALY AND TELLING HER YOU NEED IN SOONER, SO THEY WILL CALL YOU AND SET UP THAT APPOINTMENT. THEIR NUMBER IS [phone]. Follow up with: IZA MENDIOLA MD [CONSULTING PHYSICIAN] - 06/18/20 8:45 am LEIGHA CAMPO MD [NON-STAFF PHY W/O PRIVILEGES] - 07/04/20 11:00 am Forms: Discharge Instructions
[2020-04-27] MEDS ORDERED: TREXALL 2.5 MG PO SCH (10:00)
== END 2020-04-25 11:10 | disposition home or self-care (01) ==
LOC: ED 12:00 → MED SURG 14:14
PROVIDERS: ADMIT Family Medicine; ATTEND Family Medicine
DX: I16.0 Hypertensive urgency (principal); I63.81 Other cerebral infarction due to occlusion or stenosis of small artery; J32.9 Chronic sinusitis, unspecified; G45.9 Transient cerebral ischemic attack, unspecified; N39.0 Urinary tract infection, site not specified; F41.9 Anxiety disorder, unspecified; Z79.899 Other long term (current) drug therapy
CPT/HCPCS: 36415; 70450; 70551; 80048; 80053; 81001; 83735; 83880; 84443; 84484; 85025; 93005; 93041; 93268; 93306; 93880; 94762; 96365; 96374; 99291; 99292; G0378; 36000; 71045; 94760; 99285; J0360; J0696; A9270-GY

== ENCOUNTER 2022-08-28 09:47 | Emergency (ER) | payer MEDICARE, OTHER ==
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
[2022-08-28 11:32] VITALS: PULSE 72
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
[2022-08-28 12:31] VITALS: BP 174/80
[2022-08-28 12:39] VITALS: O2SAT 97
== END 2022-08-28 12:51 | disposition home or self-care (01) ==
LOC: ED 09:47
DX: M62.838 Other muscle spasm (principal); V40.5XXA Car driver injured in collision with pedestrian or animal in traffic accident, initial encounter; R51.9 Headache, unspecified; M54.2 Cervicalgia; M54.6 Pain in thoracic spine; E78.5 Hyperlipidemia, unspecified; I10 Essential (primary) hypertension; Z79.899 Other long term (current) drug therapy
CPT/HCPCS: 70450; 71045; 72125; 99283

== ENCOUNTER 2023-06-04 08:59 | Emergency (ER) | payer MEDICARE, OTHER ==
[2023-06-04 09:18] VITALS: TEMP 98
[2023-06-04] MEDS ORDERED: CLONIDINE 0.1 MG TABLET PO ONE ×2 (09:43→10:50)
[2023-06-04] MEDS ORDERED: CLONIDINE 0.1 MG TABLET ONE ×2 (09:44→10:51)
--- NOTE | 2023-06-04 10:00 | ERPHSYRPT ---
- History of Present Illness Time Seen by Provider: 06/04/23 09:46 Source: patient, family Exam Limitations: no limitations Patient Subjective Stated Complaint: Pt took 4mg of Dexamethasone instead of HCTZ and last time she was on the steroid she was on it for 4 days and then she began having problems of hypotension, and bradycardia and no control over bodily functions, pt was told to stop taking immediately, pt was first prescribed it on 05/13/2023 due to a possible infection in the lungs, pt came to the ER today due to being afraid of what might happen Triage Nursing Assessment: Pt drove self to the ER, hypertensive, denies any new pain, pt is very anxious, pt attempted to vomit up the medicine but was not successful, pt is not having symptoms at this time, no difficulties with breathing, pulses normal, skin n/w/d, pt has not taken her blood pressure medicine yet this morning Physician History: 71 years old female with history of hypertension, anxiety, rheumatoid arthritis presented in the ER after she accidentally took 4 mg dexamethasone around 8 AM today. Patient reports last time when she took for few days started to have confusion, generalized weakness, bradycardia and hypotension. Patient is very anxious, denies any chest pain palpitations or shortness of breath. No headache, dizziness/lightheadedness, blurry vision, numbness tingling or focal weakness. Patient did not take her hydrochlorothiazide today. Blood pressure is around 200 systolic. No abdominal pain nausea or vomiting reported. Allergies/Adverse Reactions: hazelnut Allergy (Severe, Verified 06/04/23 09:17) Tightness of Throat Tetracyclines Allergy (Severe, Verified 06/04/23 09:17) Anaphylactic Reaction tramadol Allergy (Severe, Verified 06/04/23 09:17) Shortness of Breath abatacept [From Orencia] Allergy (Intermediate, Verified 06/04/23 09:17) Itching ciprofloxacin Allergy (Intermediate, Verified 06/04/23 09:17) Itching hydroxychloroquine sulfate [From Plaquenil] Allergy (Intermediate, Verified 06/04/23 09:17) Rash phenazopyridine HCl [From Pyridium] Allergy (Intermediate, Verified 06/04/23 09:17) Rash Sulfa (Sulfonamide Antibiotics) Allergy (Intermediate, Verified 06/04/23 09:17) Rash oxycodone HCl [From OxyContin] Adverse Reaction (Intermediate, Verified 06/04/23 09:17) HALLUCINATION Home Medications: Gabapentin [Neurontin] 300 mg PO TID 01/21/15 [History] Hydrocodone/Acetaminophen [Hydrocodon-Acetaminophn 10-325] 1 each PO QID 01/21/15 [History] Aspirin EC 81 mg [Ecotrin 81 mg] 81 mg PO DAILY 04/10/19 [History] Aflibercept [Eylea] 2 mg IO UD 09/29/19 [History] Propranolol HCl [Inderal 20 MG] 80 mg PO BID 07/24/20 [History] Vit C/E/Zn/Coppr/Lutein/Zeaxan [Preservision Areds 2 Softgel] 1 each PO DAILY 06/06/21 [History] Citalopram Hydrobromide [Celexa] 20 mg PO DAILY 08/01/21 [History] lisinopriL [Lisinopril] 40 mg PO DAILY 04/29/22 [History] Hydrochlorothiazide 25 mg [hydroDIURIL 25 MG] 25 mg PO DAILY 06/04/23 [History] Hx Tetanus, Diphtheria Vaccination/Date Given: No Hx Influenza Vaccination/Date Given: Yes Hx Pneumococcal Vaccination/Date Given: Yes Travel Risk - International Travel Have you traveled outside of the country in past 3 weeks: No - Coronavirus Screening Are you exhibiting any of the following symptoms?: No Close contact with a COVID-19 positive Pt in past 14-21 Days: No - Vaccine Status Have you recieved a Covid-19 vaccination: Yes 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[employer] - Vaccination Dates Date of 2cond Vaccination (if applicable): 2020 - Review of Systems Constitutional: No Symptoms Eyes: No Symptoms Ears, Nose, & Throat: No Symptoms Respiratory: No Symptoms Cardiac: No Symptoms Abdominal/Gastrointestinal: No Symptoms Genitourinary Symptoms: No Symptoms Musculoskeletal: Arthralgias Skin: No Symptoms Neurological: No Symptoms Psychological: Anxiety Hematologic/Lymphatic: No Symptoms Immunological/Allergic: No Symptoms - Past Medical History Pertinent Past Medical History: Yes Neurological History: TIA ENT History: Cataracts, Macular Degeneration Cardiac History: High Cholesterol, Hypertension Respiratory History: Sleep Apnea Endocrine Medical History: No Pertinent History Musculoskeletal History: Fibromyalgia, Rheumatoid Arthritis GI Medical History: Colitis History: No Pertinent History Psycho-Social History: Depression Female Reproductive Disorders: Fibroids Other Medical History: hx Legionnaires, micro cholitis. - Past Surgical History Past Surgical History: Yes Neuro Surgical History: No Pertinent History Cardiac: No Pertinent History Respiratory: No Pertinent History Gastrointestinal: Appendectomy, Cholecystectomy Genitourinary: No Pertinent History Musculoskeletal: Joint Replacement Female Surgical History: Hysterectomy Other Surgical History: Bilateral Knee Replacement, Carpal Tunnel on right , facial lift. Monthly injections in both eyes. Colonoscopy December 2020 with polypectomy. egd 2020. tubes in right ear - Social History Smoking Status: Never smoker Exposure to second hand smoke: No Drug Use: none Patient Lives Alone: Yes - Nursing Vital Signs Nursing Vital Signs: Initial Vital Signs Temperature 98.0 F 06/04/23 09:05 Pulse Rate 70 06/04/23 09:05 Respiratory Rate 14 06/04/23 09:05 Blood Pressure 199/119 06/04/23 09:05 O2 Sat by Pulse Oximetry 98 06/04/23 09:05 Pain Scale Pain Intensity 0 - Physical Exam General Appearance: no apparent distress, alert, anxiety Eye Exam: PERRL/EOMI Ears, Nose, Throat Exam: normal ENT inspection, TMs normal, pharynx normal, moist mucous membranes Neck Exam: normal inspection, non-tender, supple, full range of motion Respiratory Exam: normal breath sounds, lungs clear Cardiovascular Exam: regular rate/rhythm, normal heart sounds Gastrointestinal/Abdomen Exam: soft, No tenderness Back Exam: normal inspection Extremity Exam: normal inspection, normal range of motion, pelvis stable Neurologic Exam: alert, oriented x 3, cooperative, vocational psychologist II-XII nml as tested, sensation nml, No normal mood/affect (Anxious), No motor deficits Skin Exam: normal color SpO2 Interpretation: normal SpO2: 98 O2 Delivery: Room Air - Course EKG Interpreted by Me: RATE (70), Sinus Rhythm, NORMAL AXIS, Q-wave, Non- specific ST Changes Ordered Tests: Medication Summary Discontinued Medications Generic Name Dose Route Start Last Admin Trade Name Freq PRN Reason Stop Dose Admin Clonidine 0.1 mg 06/04/23 09:43 06/04/23 09:45 Clonidine Hcl 0.1 Mg Tablet PO 06/04/23 09:44 0.1 mg STAT ONE Administration Clonidine Confirm 06/04/23 09:44 Clonidine Hcl 0.1 Mg Tablet Administered 06/04/23 09:45 Dose 0.1 mg .ROUTE .STK-MED ONE Clonidine 0.1 mg 06/04/23 10:50 06/04/23 10:52 Clonidine Hcl 0.1 Mg Tablet PO 06/04/23 10:51 0.1 mg STAT ONE Administration Clonidine Confirm 06/04/23 10:51 Clonidine Hcl 0.1 Mg Tablet Administered 06/04/23 10:52 Dose 0.1 mg .ROUTE .STK-MED ONE - Progress Progress: improved Progress Note: 06/04/23 09:53 71 years old female with history of hypertension, anxiety, rheumatoid arthritis presented in the ER after she accidentally took 4 mg dexamethasone around 8 AM today. Patient reports last time when she took for few days started to have confusion, generalized weakness, bradycardia and hypotension. Patient is very anxious, denies any chest pain palpitations or shortness of breath. No headache, dizziness/lightheadedness, blurry vision, numbness tingling or focal weakness. Patient did not take her hydrochlorothiazide today. Blood pressure is around 200 systolic. No abdominal pain nausea or vomiting reported. Patient is thoroughly counseled. Blood pressure is elevated, given clonidine. She has nonfocal neuro exam. Lungs bilateral clear to auscultation. No signs of angioedema. Heart rate. Chest pain or difficulty breathing. Do not think needs any work-up and if blood pressure is improved, patient will be discharged with instructions to return if needed. 06/04/23 10:47 Pressure is improved. Patient is asymptomatic, do not think needs any work-up and is being discharged. Counseled pt/family regarding: diagnosis, need for follow-up Medical Desision Making - Diagnostic Testing Diagnostic test were ordered, analyzed, and reviewed by me: No - Risk of complications Low Risk: Low risk of morbidity from additional dx testing or treatment - Departure Departure Disposition: Home Clinical Impression: Accidental drug ingestion, Uncontrolled hypertension, Anxiety Condition: Stable Critical Care Time: No Referrals: ANILA ALY [Primary Care Provider] - Follow Up with PCP/3 days Instructions: Malignant Hypertension (DC) Additional Instructions: Take low-salt diet, closely monitor your blood pressure, keep a log and follow- up with primary care for reevaluation and to see if patients. Return to ER if having chest pain palpitations, shortness of breath, weakness etc.
[2023-06-04 11:19] VITALS: BP 174/66; PULSE 66; RESP 14
[2023-06-04 18:31] VITALS: O2SAT 98
== END 2023-06-04 11:21 | disposition home or self-care (01) ==
LOC: ED 08:59
DX: Z03.6 Encounter for observation for suspected toxic effect from ingested substance ruled out (principal); I10 Essential (primary) hypertension; F41.9 Anxiety disorder, unspecified; E78.5 Hyperlipidemia, unspecified; Z79.891 Long term (current) use of opiate analgesic; Z79.899 Other long term (current) drug therapy
CPT/HCPCS: 99283; A9270-GY

== ENCOUNTER 2023-10-16 09:12 | Observation (INO) | payer MEDICARE, OTHER ==
[2023-10-16] MEDS ORDERED: Zofran 4 MG/2 ML VIAL IV ONE ×2 (10:05→12:39)
[2023-10-16] MEDS ORDERED: PROTONIX 40 MG IV IV ONE ×2 (10:05→10:16)
[2023-10-16] MEDS ORDERED: SUBLIMAZE 100 MCG/2 ML IV ONE (10:05)
[2023-10-16] MEDS ORDERED: Sodium Chloride 0.9% 500 ML 500 ML IV ONE (10:07)
[2023-10-16 10:15] LABS: Absolute Neutrophil Ct (ANC) 4.24 x10^3/uL (1.4-6.9); BASOPHIL % 0.7 % (0.0-0.4); Basophil (Absolute #) 0.04 x10^3/uL (0-0.4); Eosinophil % 3.3 % (0.00-5.0); Hematocrit 40.5 % (35-47); Hemoglobin 13.1 g/dL (12.0-16.0); IMMATURE GRAN # 0.01 x10^3u/L (0.00-0.03); IMMATURE GRAN % 0.2 % (0.00-0.4); Lymphocyte (Absolute #) 1.03 x10^3/uL (1.0-4.6); Lymphocytes % 16.7 % (24.0-44.0); Mean Corpuscular Hemoglobin 29.1 pg (26-32); Mean Corpuscular Hgb Concent. 32.3 g/dL (32-36); Mean Platelet Volume 9.5 fL (7.5-11.0); Monocyte (Absolute #) 0.63 x10^3/uL (0.0-1.3); Monocytes % 10.2 % (0.0-12.0); Neutrophil % 68.9 % (36.0-66.0); Platelet Count 257 x10^3/uL (150-450); White Blood Count 6.2 x10^3/uL (4.0-10.5)
[2023-10-16] MEDS ORDERED: Zofran 4 MG/2 ML VIAL ONE ×2 (10:15→12:43)
[2023-10-16] MEDS ORDERED: SUBLIMAZE 100 MCG/2 ML ONE (10:16)
[2023-10-16 10:21] LABS: ANION GAP 10.5 MEQ/L (5-15); BILIRUBIN,TOTAL 0.8 mg/dL (0.2-1.3); Calcium 8.7 mg/dL (8.4-10.2); Creatinine 1 0.57 mg/dL (0.52-1.04); EST GLOMERULAR FILTRATION RATE 95.3 ML/MIN; Total Protein 7.2 g/dL (6.3-8.2)
[2023-10-16] MEDS: Sodium Chloride 0.9% 1000 ML 1,000 ML IV SCH ×3 (10:22→23:53)
[2023-10-16 10:25] LABS: PROTIME 10.9 SECONDS (9.4-12.5); PTT 26.7 SECONDS (25.1-36.5)
[2023-10-16] MEDS ORDERED: PIPERACILLIN/TAZOBACTAM 3.375 GM in Sodium Chloride 100ML MINI-BAG PLUS 100 ML IV ONE (12:03)
[2023-10-16] MEDS ORDERED: Klor Con PO ONE ×2 (12:03→12:20)
--- NOTE | 2023-10-16 12:10 | XRAY ---
CLINICAL HISTORY:lower abd pain COMPARISON:None. TECHNIQUE:Multiple axial slices with coronal and sagittal reformatting from CT scan abdomen and pelvis with contrast have been submitted for interpretation. FINDINGS: Evidence of long segment circumferential mucosal thickening involving the descending and sigmoid colon along with mild adjacent fat stranding and presence of multiple diverticuli. Findings are more marked extending from the midportion of the descending colon to the sigmoid colon. No definite pericolonic collection is noted. Liver, spleen, pancreas, adrenals and kidneys appear unremarkable. No definite focal lesion is noted. Surgical celine are noted in the gallbladder fossa, likely postcholecystectomy. CBD is dilated, likely secondary to postcholecystectomy status. Ureters and urinary bladder are unremarkable. Pelvic viscera appear unremarkable. Visualized esophagus, stomach, duodenum, small bowel loops and rest of the large bowel loops appear unremarkable. No definite ascites or abdominal lymphadenopathy is noted. Ileocecal junction is intact. Appendix is not optimally visualized and requires clinical correlation. Degenerative changes are noted in the visualized thoracolumbar spine. Compression collapse of T11 vertebral body is noted. Small umbilical fat-containing hernia is noted. Rest of the visualized osseous structures and surrounding soft tissues are intact. IMPRESSION: 1. Overall findings are suggestive of long segment circumferential descending and sigmoid colonic mucosal thickening suggestive of inflammatory changes in the presence of multiple diverticuli, favoring colitis versus diverticulitis. No definite tee-colonic collection. Clinical correlation is advised. 2. Rest of the details as above. [facility] ER was called at 11:03 AM VOCATIONAL REHABILITATION CONSULTANT on [phone] and findings were verbally communicated to Dr. Floyd Gautam Electronically Signed by: Diana Nuno MD. (10/16/2023 12:05:28 EST)
--- NOTE | 2023-10-16 12:13 | ERPHSYRPT ---
- History of Present Illness Time Seen by Provider: 10/16/23 09:24 Historian: patient Exam Limitations: no limitations Patient Subjective Stated Complaint: C/O abdominal pain with N/V that started yesterday. Additional complaint of bloody stools that started at around 03:30 this am. Triage Nursing Assessment: Patient ambulated back to ER without difficulties. She is alert and oriented. No active vomiting. Skin tone normal. YOGI LEE. 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 Patient is not taking any blood thinners. Reports moderate to severe sharp pain with no significant aggravating or relieving factors. Denies any fever or chills. No history of hemorrhoids. Allergies/Adverse Reactions: hazelnut Allergy (Severe, Verified 10/16/23 09:48) Tightness of Throat Tetracyclines Allergy (Severe, Verified 10/16/23 09:48) Anaphylactic Reaction tramadol Allergy (Severe, Verified 10/16/23 09:48) Shortness of Breath abatacept [From Orencia] Allergy (Intermediate, Verified 10/16/23 09:48) Itching ciprofloxacin Allergy (Intermediate, Verified 10/16/23 09:48) Itching hydroxychloroquine sulfate [From Plaquenil] Allergy (Intermediate, Verified 10/16/23 09:48) Rash phenazopyridine HCl [From Pyridium] Allergy (Intermediate, Verified 10/16/23 09:48) Rash Sulfa (Sulfonamide Antibiotics) Allergy (Intermediate, Verified 10/16/23 09:48) Rash dexamethasone Adverse Reaction (Intermediate, Verified 10/16/23 09:48) muscle weakness can tolerate prednisone fine oxycodone HCl [From OxyContin] Adverse Reaction (Intermediate, Verified 10/16/23 09:48) HALLUCINATION Home Medications: Gabapentin [Neurontin] 600 mg PO BID 01/21/15 [History] Hydrocodone/Acetaminophen [Hydrocodon-Acetaminophn 10-325] 1 each PO QID 01/21/15 [History] Aspirin EC 81 mg [Ecotrin 81 mg] 81 mg PO DAILY 04/10/19 [History] Aflibercept [Eylea] 2 mg IO UD 09/29/19 [History] Propranolol HCl [Inderal 20 MG] 80 mg PO BID 07/24/20 [History] Vit C/E/Zn/Coppr/Lutein/Zeaxan [Preservision Areds 2 Softgel] 1 each PO DAILY 06/06/21 [History] Citalopram Hydrobromide [Celexa] 20 mg PO HS 08/01/21 [History] lisinopriL [Lisinopril] 40 mg PO DAILY 04/29/22 [History] Hydrochlorothiazide 25 mg [hydroDIURIL 25 MG] 25 mg PO DAILY 06/04/23 [History] Hx Tetanus, Diphtheria Vaccination/Date Given: Yes Hx Influenza Vaccination/Date Given: Yes Hx Pneumococcal Vaccination/Date Given: Yes Immunizations Up to Date: Yes Travel Risk - International Travel Have you traveled outside of the country in past 3 weeks: No - Coronavirus Screening Are you exhibiting any of the following symptoms?: Yes Symptoms: Vomiting/Diarrhea Close contact with a COVID-19 positive Pt in past 14-21 Days: No - Vaccine Status Have you recieved a Covid-19 vaccination: Yes 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: [employer] - Vaccination Dates Date of 2cond Vaccination (if applicable): 2020 - Review of Systems Constitutional: No Symptoms Eyes: No Symptoms Ears, Nose, & Throat: No Symptoms Respiratory: No Symptoms Cardiac: No Symptoms Abdominal/Gastrointestinal: Abdominal Pain, Nausea, Hematochezia Genitourinary Symptoms: No Symptoms Musculoskeletal: Arthralgias Skin: No Symptoms Neurological: No Symptoms Psychological: No Symptoms Hematologic/Lymphatic: No Symptoms Immunological/Allergic: No Symptoms - Past Medical History Pertinent Past Medical History: Yes Neurological History: TIA ENT History: Cataracts, Macular Degeneration Cardiac History: High Cholesterol, Hypertension Respiratory History: Sleep Apnea Endocrine Medical History: No Pertinent History Musculoskeletal History: Fibromyalgia, Rheumatoid Arthritis, Other GI Medical History: Colitis, GERD, Gallbladder Disease History: No Pertinent History Psycho-Social History: Depression Female Reproductive Disorders: Fibroids Other Medical History: hx Legionnaires, micro cholitis, carpal tunnel - Past Surgical History Past Surgical History: Yes Neuro Surgical History: No Pertinent History Cardiac: No Pertinent History Respiratory: No Pertinent History Gastrointestinal: Appendectomy, Cholecystectomy Genitourinary: No Pertinent History Musculoskeletal: Joint Replacement Female Surgical History: Hysterectomy Other Surgical History: Bilateral Knee Replacement, Carpal Tunnel on right , facial lift. Monthly injections in both eyes. Colonoscopy December 2020 with polypectomy. egd 2020. tubes in right ear - Social History Smoking Status: Never smoker Exposure to second hand smoke: No Drug Use: none Patient Lives Alone: Yes - Nursing Vital Signs Nursing Vital Signs: Initial Vital Signs Pulse Rate 61 10/16/23 09:49 Respiratory Rate 14 10/16/23 09:49 Blood Pressure 175/79 10/16/23 09:49 O2 Sat by Pulse Oximetry 96 10/16/23 09:49 Pain Scale Pain Intensity 3 - Physical Exam General Appearance: no apparent distress, alert Eye Exam: PERRL/EOMI Ears, Nose, Throat Exam: normal ENT inspection Neck Exam: normal inspection, supple, full range of motion Respiratory Exam: normal breath sounds, lungs clear Cardiovascular Exam: regular rate/rhythm, normal heart sounds Gastrointestinal/Abdomen Exam: soft, normal bowel sounds, tenderness (Left flank/left lower quadrant/suprapubic area with some guarding), No distention, No rebound Back Exam: normal inspection, normal range of motion Extremity Exam: normal inspection, normal range of motion Neurologic Exam: alert, oriented x 3, cooperative Skin Exam: normal color SpO2 Interpretation: normal SpO2: 94 O2 Delivery: Room Air Ordered Tests: Active Orders 24 hr Category Date Time Status IV Insertion STAT Care 10/16/23 10:05 Active NPO (ED) STAT Care 10/16/23 10:05 Active ABDOMEN AND PELVIS W CONTRAST [CT] Stat Exams 10/16/23 10:06 Taken CBC W DIFF Stat Lab 10/16/23 10:14 Completed CMP Stat Lab 10/16/23 10:14 Completed LIPASE Stat Lab 10/16/23 10:14 Completed OB-FECAL SCREEN Stat Lab 10/16/23 Ordered PROTIME WITH INR Stat Lab 10/16/23 10:14 Completed PTT Stat Lab 10/16/23 10:14 Completed UA W/RFX UR CULTURE Stat Lab 10/16/23 11:57 Ordered Medication Summary Generic Name Dose Route Start Last Admin Trade Name Freq PRN Reason Stop Dose Admin Sodium Chloride 1,000 mls @ 100 mls/hr 10/16/23 10:15 10/16/23 11:02 Sodium Chloride 0.9% 1000 Ml IV 11/15/23 10:14 500 mls/hr .Q10H CHRISTINA Infusion Piperacillin Sod/Tazobactam 100 mls @ 200 mls/hr 10/16/23 12:03 Sod 3.375 gm/ Sodium Chloride IV 10/16/23 12:32 STAT ONE Discontinued Medications Generic Name Dose Route Start Last Admin Trade Name Teddy PRN Reason Stop Dose Admin Fentanyl Citrate 50 mcg 10/16/23 10:05 10/16/23 10:23 Fentanyl Citrate 100 Mcg/2 Ml* Vial IV 10/16/23 10:06 50 mcg STAT ONE Administration Fentanyl Citrate Confirm 10/16/23 10:16 Fentanyl Citrate 100 Mcg/2 Ml* Vial Administered 10/16/23 10:17 Dose 100 mcg .ROUTE .STK-MED ONE Sodium Chloride 500 mls @ 500 mls/hr 10/16/23 10:07 Sodium Chloride 0.9% 500 Ml IV 10/16/23 11:06 .Q1H ONE Ondansetron HCl 4 mg 10/16/23 10:05 10/16/23 10:30 Ondansetron Hcl 4 Mg/2 Ml Vial IV 10/16/23 10:06 4 mg STAT ONE Administration Ondansetron HCl Confirm 10/16/23 10:15 Ondansetron Hcl 4 Mg/2 Ml Vial Administered 10/16/23 10:16 Dose 4 mg .ROUTE .STK-MED ONE Pantoprazole Sodium 40 mg 10/16/23 10:05 10/16/23 10:23 Pantoprazole 40 Mg Vial IV 10/16/23 10:06 40 mg STAT ONE Administration Pantoprazole Sodium Confirm 10/16/23 10:16 Pantoprazole 40 Mg Vial Administered 10/16/23 10:17 Dose 40 mg IV .STK-MED ONE Potassium Chloride 40 meq 10/16/23 12:03 Potassium Chloride Tab 10 Meq Tab PO 10/16/23 12:04 STAT ONE Lab/Rad Data: Laboratory Result Diagrams 10/16/23 10:14 10/16/23 10:14 Laboratory Results 10/16/23 10/16/23 10/16/23 Range/Units 10:14 10:14 10:14 WBC 6.2 (4.0-10.5) x10^3/uL RBC 4.50 (4.1-5.4) x10^6/uL Hgb 13.1 (12.0-16.0) g/dL Hct 40.5 (35-47) % MCV 90.0 (78-100) fL MCH 29.1 (26-32) pg MCHC 32.3 (32-36) g/dL RDW 14.0 (11.5-14.0) % Plt Count 257 (150-450) x10^3/uL MPV 9.5 (7.5-11.0) fL Gran % 68.9 H (36.0-66.0) % Immature Gran % (Auto) 0.2 (0.00-0.4) % Nucleat RBC Rel Count 0.0 (0.00-0.1) % Eos # (Auto) 0.20 (0-0.5) x10^3/uL Immature Gran # (Auto) 0.01 (0.00-0.03) x10^3u/L Absolute Lymphs (auto) 1.03 (1.0-4.6) x10^3/uL Absolute Monos (auto) 0.63 (0.0-1.3) x10^3/uL Absolute Nucleated RBC 0.00 (0.00-0.01) x10^3u/L Lymphocytes % 16.7 L (24.0-44.0) % Monocytes % 10.2 (0.0-12.0) % Eosinophils % 3.3 (0.00-5.0) % Basophils % 0.7 (0.0-0.4) % Absolute Granulocytes 4.24 (1.4-6.9) x10^3/uL Basophils # 0.04 (0-0.4) x10^3/uL PT 10.9 (9.4-12.5) SECONDS INR 1.00 (0.8-3.0) APTT 26.7 (25.1-36.5) SECONDS Sodium 139 (137-145) mmol/L Potassium 3.0 L* (3.5-5.1) mmol/L Chloride 101 (98-107) mmol/L Carbon Dioxide 30 (22-30) mmol/L Anion Gap 10.5 (5-15) MEQ/L BUN 17 (7-17) mg/dL Creatinine 0.57 (0.52-1.04) mg/dL Estimated GFR 95.3 ML/MIN Glucose 106 (74-106) mg/dL Calcium 8.7 (8.4-10.2) mg/dL Total Bilirubin 0.80 (0.2-1.3) mg/dL AST 30 (14-36) U/L ALT 17 (0-35) U/L Alkaline Phosphatase 75 (38-126) U/L Serum Total Protein 7.2 (6.3-8.2) g/dL Albumin 4.0 (3.5-5.0) g/dL Lipase 23 (23-300) U/L - Progress Progress: improved, pain not gone completely, re-examined Progress Note: 10/16/23 12:11 73 years old with history of microscopic colitis is evaluated in the ER with lower abdominal pain/left flank pain with no significant aggravating or relieving factors with associated nausea and bleeding per rectum early this morning. Patient is given symptomatic treatment for pain and fluids. Workup showed normal white count, fairly unremarkable chemistries except for potassium of 3.0 and is getting oral replacement. CT findings are consistent with circum ferential thickening of descending and sigmoid colon suggestive of colitis and some diverticuli as well with some element of diverticulitis. Started on Zosyn. Patient has stable H&H. I believe she would benefit with IV antibiotics. Discussed with hospitalist, reviewed history, workup and agreed with admission. Will see patient in: hospital (observation) Counseled pt/family regarding: lab results, diagnosis, need for follow-up, rad results Medical Desision Making - Discussion of managment Care discussed with:: hospitalist (Dr. Good) Reviewed:: Test results Agreed on:: Treatment plan Will see patient: in hospital - Diagnostic Testing Diagnostic test were ordered, analyzed, and reviewed by me: Yes Radiological Interpretation: Reviewed by me, Teleradiologist Report - Risk of complications The pt has a high risk of morbidity or mortality based on: Decision regarding hospitilization or escalation of hosp level of care - Departure Departure Disposition: Observation Clinical Impression: Infectious colitis Condition: Stable Critical Care Time: No Referrals: ANILA ALY [Primary Care Provider] - Follow up/PCP as directed
[2023-10-16] MEDS ORDERED: PIPERACILLIN/TAZOBACTAM IV ONE (12:21)
[2023-10-16] MEDS ORDERED: Sodium Chloride 100ML MINI-BAG PLUS 100 ML IV ONE (12:21)
[2023-10-16 12:36] LABS: Appearance Clear (Clear); Bacteria None Seen /HPF (None Seen); Bilirubin Negative (Negative); Blood Negative (Negative); Epithelial Cells None Seen /HPF (None Seen); Glucose, Urine Negative (Negative); Hyaline Casts NONE SEEN /LPF (0-2); Ketones Negative (Negative); Leukocyte Esterase Trace (Negative); Nitrite Negative (Negative); Protein,Urine Dip Negative (Negative); RBC 0-2 /HPF (0-5); Specific Gravity 1.025 (1.005-1.030); Urobilinogen 0.2 mg/dL (0.2); WBC 0-2 /HPF (0-5)
[2023-10-16 12:39] LABS: ADD URINE CULTURE? NO (NO)
--- NOTE | 2023-10-16 13:12 | PCM.HP ---
History of Present Illness - Chief Complaint Chief Complaint: Abdominal pain Date: 10/16/23 History of Present Illness: is a 73 year old femal with a pmhx of TIA, HLD, HTN, DOM, fibromyalgia, RA, GERD,microscopic colitis, and GB disease who presented to ED 10/16/23 with complaints of diffuse lower abdominal pain greater in the LUQ and LLQ. Patient states she was in her usual state of health until yesterday when started to experience the abdominal pain, nausea, and diarrhea. At about 3 a.m. this morning she noticed a moderate amount of bright red blood in her stool with clots, and later she noticed her stools were dark. She also states she continues to see a moderate amount of blood with stool passage since she has been at the hospital. She has had a similar episode about one year ago where she was diagnosed with micro-colitis. She states she saw Dr. Reardon in [place] and had a colonoscopy with the colitis noted as well as polyps but otherwise unremarkable. In ED patient presented afebrile, hypertensive, with spo2 @ 96% on RA. CT of the abdomen and pelvis demonstrate long segment circumferential descending and sigmoid colonic mucosal thickening suggestive of inflammatory changes in the presence of multiple diverticuli, favoring colitis versus diverticulitis. Patient does have history of microscopic colitis. Of note, no abscess or free air/ signs of perforation noted on imaging. Lab finding remarkable for potassium of 3.0, otherwise stable. Patient was started on Zosyn and protonix. Potassium correction also provided. - Review of Systems Constitutional: No Symptoms Eyes: No Symptoms Ears, Nose, & Throat: No Symptoms Respiratory: No Symptoms Cardiac: No Symptoms Abdominal/Gastrointestinal: Abdominal Pain, Nausea, Diarrhea, Hematochezia Genitourinary Symptoms: No Symptoms Musculoskeletal: Joint Pain Neurological: No Symptoms Psychological: No Symptoms Medications & Allergies Home Medications: Home Medication List Gabapentin [Neurontin] 600 mg PO BID 01/21/15 [History Confirmed 10/16/23] Hydrocodone/Acetaminophen [Hydrocodon-Acetaminophn 10-325] 1 each PO QID 01/21/15 [History Confirmed 10/16/23] Aspirin EC 81 mg [Ecotrin 81 mg] 81 mg PO DAILY 04/10/19 [History Confirmed 10/16/23] Aflibercept [Eylea] 2 mg IO UD 09/29/19 [History Confirmed 10/16/23] Propranolol HCl [Inderal 20 MG] 80 mg PO BID 07/24/20 [History Confirmed 10/16/23] Vit C/E/Zn/Coppr/Lutein/Zeaxan [Preservision Areds 2 Softgel] 1 each PO DAILY 06/06/21 [History Confirmed 10/16/23] Citalopram Hydrobromide [Celexa] 20 mg PO HS 08/01/21 [History Confirmed 10/16/23] lisinopriL [Lisinopril] 40 mg PO DAILY 04/29/22 [History Confirmed 10/16/23] Hydrochlorothiazide 25 mg [hydroDIURIL 25 MG] 25 mg PO DAILY 06/04/23 [History Confirmed 10/16/23] Allergies/Adverse Reactions: Allergies Allergy/AdvReac Type Severity Reaction Status Date / Time hazelnut Allergy Severe Tightness Verified 10/16/23 09:48 of Throat Tetracyclines Allergy Severe Anaphylactic Verified 10/16/23 09:48 Reaction tramadol Allergy Severe Shortness Verified 10/16/23 09:48 of Breath abatacept [From Orencia] Allergy Intermediate Itching Verified 10/16/23 09:48 ciprofloxacin Allergy Intermediate Itching Verified 10/16/23 09:48 hydroxychloroquine sulfate Allergy Intermediate Rash Verified 10/16/23 09:48 [From Plaquenil] phenazopyridine HCl Allergy Intermediate Rash Verified 10/16/23 09:48 [From Pyridium] Sulfa (Sulfonamide Allergy Intermediate Rash Verified 10/16/23 09:48 Antibiotics) dexamethasone AdvReac Intermediate Verified 10/16/23 09:48 oxycodone HCl AdvReac Intermediate HALLUCINATI Verified 10/16/23 09:48 [From OxyContin] ON - Past Medical History Past Medical History: Yes Neurological History: TIA ENT History: Cataracts, Macular Degeneration Cardiac History: High Cholesterol, Hypertension Respiratory History: Sleep Apnea Endocrine Medical History: No Pertinent History Musculoskelatal History: Fibromyalgia, Rheumatoid Arthritis, Other GI Medical History: Colitis, GERD, Gallbladder Disease History: No Pertinent History Pyscho-Social History: Depression Reproductive Disorders: Fibroids Comment: hx Legionnaires, micro cholitis, carpal tunnel - Past Surgical History Past Surgical History: Yes Neuro Surgical History: No Pertinent History Cardiac History: No Pertinent History Respiratory Surgery: No Pertinent History GI Surgical History: Appendectomy, Cholecystectomy Genitourinary Surgical Hx: No Pertinent History Musculskeletal Surgical Hx: Joint Replacement Female Surgical History: Hysterectomy Other Surgical History: Bilateral Knee Replacement, Carpal Tunnel on right , facial lift. Monthly injections in both eyes. Colonoscopy December 2020 with polypectomy. egd 2020. tubes in right ear - Social History Smoking Status: Never smoker Exposure to second hand smoke: No Alcohol: None Drug Use: none - Physical Exam Vital Signs: Vital Signs - 24 hr Temp Pulse Resp BP BP Pulse Ox 10/16/23 12:15 94 L 10/16/23 12:00 57 L 16 196/75 97 10/16/23 11:30 58 L 15 184/67 94 L 10/16/23 11:00 58 L 12 159/99 93 L 10/16/23 10:59 58 L 7 L 96 10/16/23 10:40 64 18 95 10/16/23 10:30 64 12 97 10/16/23 10:20 64 10 L 97 10/16/23 10:10 61 12 96 10/16/23 10:01 62 13 98 10/16/23 09:52 98.1 F 65 15 175/79 95 10/16/23 09:49 61 14 175/79 96 General Appearance: no apparent distress Neurologic Exam: alert, oriented x 3, cooperative Eye Exam: PERRL/EOMI Ears, Nose, Throat Exam: normal ENT inspection Neck Exam: normal inspection Respiratory Exam: normal breath sounds, lungs clear Cardiovascular Exam: regular rate/rhythm, normal heart sounds Gastrointestinal/Abdomen Exam: soft, normal bowel sounds, tenderness (LLQ, LUQ) Pelvic Exam: not done Rectal Exam: not done Back Exam: normal inspection Extremity Exam: normal inspection Results - Labs Lab/Micro Results: Lab Results-Last 24 Hours 10/16/23 10/16/23 10/16/23 Range/Units 10:14 10:14 10:14 WBC 6.2 (4.0-10.5) x10^3/uL RBC 4.50 (4.1-5.4) x10^6/uL Hgb 13.1 (12.0-16.0) g/dL Hct 40.5 (35-47) % MCV 90.0 (78-100) fL MCH 29.1 (26-32) pg MCHC 32.3 (32-36) g/dL RDW 14.0 (11.5-14.0) % Plt Count 257 (150-450) x10^3/uL MPV 9.5 (7.5-11.0) fL Gran % 68.9 H (36.0-66.0) % Immature Gran % (Auto) 0.2 (0.00-0.4) % Nucleat RBC Rel Count 0.0 (0.00-0.1) % Eos # (Auto) 0.20 (0-0.5) x10^3/uL Immature Gran # (Auto) 0.01 (0.00-0.03) x10^3u/L Absolute Lymphs (auto) 1.03 (1.0-4.6) x10^3/uL Absolute Monos (auto) 0.63 (0.0-1.3) x10^3/uL Absolute Nucleated RBC 0.00 (0.00-0.01) x10^3u/L Lymphocytes % 16.7 L (24.0-44.0) % Monocytes % 10.2 (0.0-12.0) % Eosinophils % 3.3 (0.00-5.0) % Basophils % 0.7 (0.0-0.4) % Absolute Granulocytes 4.24 (1.4-6.9) x10^3/uL Basophils # 0.04 (0-0.4) x10^3/uL PT 10.9 (9.4-12.5) SECONDS INR 1.00 (0.8-3.0) APTT 26.7 (25.1-36.5) SECONDS Sodium 139 (137-145) mmol/L Potassium 3.0 L* (3.5-5.1) mmol/L Chloride 101 (98-107) mmol/L Carbon Dioxide 30 (22-30) mmol/L Anion Gap 10.5 (5-15) MEQ/L BUN 17 (7-17) mg/dL Creatinine 0.57 (0.52-1.04) mg/dL Estimated GFR 95.3 ML/MIN Glucose 106 (74-106) mg/dL Calcium 8.7 (8.4-10.2) mg/dL Total Bilirubin 0.80 (0.2-1.3) mg/dL AST 30 (14-36) U/L ALT 17 (0-35) U/L Alkaline Phosphatase 75 (38-126) U/L Serum Total Protein 7.2 (6.3-8.2) g/dL Albumin 4.0 (3.5-5.0) g/dL Lipase 23 (23-300) U/L Urine Color (Yellow) Urine Appearance (Clear) Urine pH (4.6-8.0) Ur Specific [place] (1.005-1.030) Urine Protein (Negative) Urine Glucose (UA) (Negative) mg/dL Urine Ketones (Negative) Urine Blood (Negative) Urine Nitrite (Negative) Urine Bilirubin (Negative) Urine Urobilinogen (0.2) mg/dL Ur Leukocyte Esterase (Negative) U Hyaline Cast (Auto) (0-2) /LPF Urine Microscopic RBC (0-5) /HPF Urine Microscopic WBC (0-5) /HPF Ur Epithelial Cells (None Seen) /HPF Urine Bacteria (None Seen) /HPF Urine Culture Reflexed (NO) 10/16/23 Range/Units 11:57 WBC (4.0-10.5) x10^3/uL RBC (4.1-5.4) x10^6/uL Hgb (12.0-16.0) g/dL Hct (35-47) % MCV (78-100) fL MCH (26-32) pg MCHC (32-36) g/dL RDW (11.5-14.0) % Plt Count (150-450) x10^3/uL MPV (7.5-11.0) fL Gran % (36.0-66.0) % Immature Gran % (Auto) (0.00-0.4) % Nucleat RBC Rel Count (0.00-0.1) % Eos # (Auto) (0-0.5) x10^3/uL Immature Gran # (Auto) (0.00-0.03) x10^3u/L Absolute Lymphs (auto) (1.0-4.6) x10^3/uL Absolute Monos (auto) (0.0-1.3) x10^3/uL Absolute Nucleated RBC (0.00-0.01) x10^3u/L Lymphocytes % (24.0-44.0) % Monocytes % (0.0-12.0) % Eosinophils % (0.00-5.0) % Basophils % (0.0-0.4) % Absolute Granulocytes (1.4-6.9) x10^3/uL Basophils # (0-0.4) x10^3/uL PT (9.4-12.5) SECONDS INR (0.8-3.0) APTT (25.1-36.5) SECONDS Sodium (137-145) mmol/L Potassium (3.5-5.1) mmol/L Chloride (98-107) mmol/L Carbon Dioxide (22-30) mmol/L Anion Gap (5-15) MEQ/L BUN (7-17) mg/dL Creatinine (0.52-1.04) mg/dL Estimated GFR ML/MIN Glucose (74-106) mg/dL Calcium (8.4-10.2) mg/dL Total Bilirubin (0.2-1.3) mg/dL AST (14-36) U/L ALT (0-35) U/L Alkaline Phosphatase (38-126) U/L Serum Total Protein (6.3-8.2) g/dL Albumin (3.5-5.0) g/dL Lipase (23-300) U/L Urine Color Yellow (Yellow) Urine Appearance Clear (Clear) Urine pH 7.0 (4.6-8.0) Ur Specific [place] 1.025 (1.005-1.030) Urine Protein Negative (Negative) Urine Glucose (UA) Negative (Negative) mg/dL Urine Ketones Negative (Negative) Urine Blood Negative (Negative) Urine Nitrite Negative (Negative) Urine Bilirubin Negative (Negative) Urine Urobilinogen 0.2 (0.2) mg/dL Ur Leukocyte Esterase Trace A (Negative) U Hyaline Cast (Auto) NONE SEEN (0-2) /LPF Urine Microscopic RBC 0-2 (0-5) /HPF Urine Microscopic WBC 0-2 (0-5) /HPF Ur Epithelial Cells None Seen (None Seen) /HPF Urine Bacteria None Seen (None Seen) /HPF Urine Culture Reflexed NO (NO) - Radiology Impressions Radiology Exams & Impressions: Radiology Procedures Category Date Time Status ABDOMEN AND PELVIS W CONTRAST [CT] Stat Exams 12/16/23 10:06 Completed Assessment/Plan (1) Infectious colitis Current Visit: Yes Status: Acute Assessment & Plan: -CT scan of abdomen demonstrates long segment circumferential descending and sigmoid colonic mucosal thickening suggestive of inflammatory changes in the presence of multiple diverticuli, favoring colitis versus diverticulitis. -Zosyn started in ED, will continue with levaquin/Flagyl -NPO, ADAT -IVF -Supportive care with anti-emetics and pain control -PPI -Probiotic Code(s): A09 - INFECTIOUS GASTROENTERITIS AND COLITIS, UNSPECIFIED (2) Hypokalemia Current Visit: Yes Status: Acute Code(s): E87.6 - HYPOKALEMIA (3) GI bleed Current Visit: Yes Status: Acute Assessment & Plan: -Hgb stable at 13.1, will continue to monitor -INR at 1.00 -PPI 40mg BID -H&H Q8h -occult stools -Transfuse if hgb<7 -avoid NSAIDs -Consult surgery for possible scopes Code(s): K92.2 - GASTROINTESTINAL HEMORRHAGE, UNSPECIFIED (4) History of stroke Current Visit: Yes Status: Acute Assessment & Plan: -noted, patient not on home anticoagulation, will hold ASA in the setting of rectal bleeding Code(s): Z86.73 - PRSNL HX OF TIA (TIA), AND CEREB INFRC W/O RESID DEFICITS (5) HLD (hyperlipidemia) Current Visit: Yes Status: Acute Assessment & Plan: -No statin noted on med rec Code(s): E78.5 - HYPERLIPIDEMIA, UNSPECIFIED (6) HTN (hypertension) Current Visit: Yes Status: Acute Assessment & Plan: -Continue home meds, add hydralazine prn for SBP >180 DBP >100 Code(s): I10 - ESSENTIAL (PRIMARY) HYPERTENSION (7) DOM (obstructive sleep apnea) Current Visit: Yes Status: Acute Code(s): G47.33 - OBSTRUCTIVE SLEEP APNEA (ADULT) (PEDIATRIC) (8) Fibromyalgia Current Visit: Yes Status: Acute Assessment & Plan: -noted (9) GERD (gastroesophageal reflux disease) Current Visit: Yes Status: Acute Assessment & Plan: -PPI VTE: bilateral SCD for now PPI: protonix Dispo : 1-2 days Contact: Kelly Plasencia [phone] Code(s): K21.9 - GASTRO-ESOPHAGEAL REFLUX DISEASE WITHOUT ESOPHAGITIS
[2023-10-16] MEDS ORDERED: Zofran 4 MG/2 ML VIAL IV PRN (13:21)
[2023-10-16] MEDS ORDERED: TYLENOL 325 MG PO PRN (13:21)
[2023-10-16] MEDS ORDERED: NORCO 10-325 MG PO PRN (14:02)
[2023-10-16] MEDS ORDERED: AFLIBERCEPT 2 MG/0.05 ML IO SCH (14:15)
[2023-10-16] MEDS: FLAGYL 500 MG IVPB 500 MG/100 ML BAG IV SCH ×2 (17:48→23:53)
[2023-10-16] MEDS: NORCO 10-325 MG PO PRN ×2 (19:28→23:52)
[2023-10-16] MEDS: Inderal PO SCH (21:30)
[2023-10-16] MEDS: MAXIPIME 1 GM** 1 G in Dextrose 5%/Water IV Soln. 100ML PLUS BAG 100 ML IV SCH (21:30)
[2023-10-16] MEDS: ceLEXa 20 MG PO SCH (21:30)
[2023-10-16] MEDS: Ocuvite Tablet PO SCH (21:30)
[2023-10-16] MEDS: NEURONTIN PO SCH (21:30)
[2023-10-16] MEDS: PROTONIX 40 MG IV IV SCH (21:30)
[2023-10-16] MEDS ORDERED: NON-FORMULARY ITEM (Vit C/E/Zn/Coppr/Lutein/Zeaxan [Preservision Areds 2 Softgel] 1 EACH C PO SCH (22:00)
[2023-10-16] MEDS ORDERED: NON-FORMULARY ITEM (Citalopram Hydrobromide [Celexa] 10 MG Tablet) PO SCH (22:00)
--- NOTE | 2023-10-17 05:23 | PCM.NOTE ---
Date and Time: 10/17/23 0522 Subjective Assessment: is a 73 year old femal with a pmhx of TIA, HLD, HTN, DOM, fibromyalgia, RA, GERD,microscopic colitis, and GB disease who presented to ED 10/16/23 with complaints of diffuse lower abdominal pain greater in the LUQ and LLQ. Patient states she was in her usual state of health until yesterday when started to experience the abdominal pain, nausea, and diarrhea. At about 3 a.m. this morning she noticed a moderate amount of bright red blood in her stool with clots, and later she noticed her stools were dark. She also states she continues to see a moderate amount of blood with stool passage since she has been at the hospital. She has had a similar episode about one year ago where she was diagnosed with micro-colitis. She states she saw Dr. Reardon in [place] and had a colonoscopy with the colitis noted as well as polyps but otherwise unremarkable. In ED patient presented afebrile, hypertensive, with spo2 @ 96% on RA. CT of the abdomen and pelvis demonstrate long segment circumferential descending and sigmoid colonic mucosal thickening suggestive of inflammatory changes in the presence of multiple diverticuli, favoring colitis versus diverticulitis. Patient does have history of microscopic colitis. Of note, no abscess or free air/ signs of perforation noted on imaging. Lab finding remarkable for potassium of 3.0, otherwise stable. Patient was started on Zosyn and protonix. Potassium correction also provided. 10/17: Met with patient bedside. Endorses improvement overnight, still with minor abdominal pain L>R lower quadrant 3/10. No longer with diarrhea or nausea, no episodes of BPR. Potassium is low this morning which we will replenish. Plan is to continue current abx regimen today, most likely switch to oral tomorrow with possible discharge. - Review of Systems Constitutional: No Symptoms Eyes: No Symptoms Ears, Nose, & Throat: No Symptoms Respiratory: No Symptoms Cardiac: No Symptoms Abdominal/Gastrointestinal: No Symptoms Genitourinary Symptoms: No Symptoms Musculoskeletal: No Symptoms Skin: No Symptoms Neurological: No Symptoms Psychological: No Symptoms Endocrine: No Symptoms Hematologic/Lymphatic: No Symptoms Immunological/Allergic: No Symptoms Objective Exam General Appearance: no apparent distress Neurologic Exam: alert, oriented x 3, cooperative Skin Exam: normal color Eye Exam: PERRL Ears, Nose, Throat Exam: normal ENT inspection Neck Exam: normal inspection Respiratory Exam: normal breath sounds, lungs clear Cardiovascular Exam: regular rate/rhythm, normal heart sounds Gastrointestinal/Abdomen Exam: soft, normal bowel sounds, tenderness Extremity Exam: normal inspection Back Exam: normal inspection OBJECTIVE DATA Vital Signs: Vital Signs - 24 hr Temp Pulse Resp BP BP Pulse Ox 10/17/23 04:00 97.4 F 68 18 163/70 93 L 10/17/23 00:00 16 10/16/23 23:28 97.2 F 56 L 16 170/72 95 10/16/23 20:00 97.6 F 73 18 159/72 94 L 10/16/23 17:27 59 L 16 92 L 10/16/23 16:39 97.6 F 59 L 16 164/69 92 L 10/16/23 15:44 97.6 F 59 L 16 164/69 92 L 10/16/23 13:11 97.6 F 65 16 186/79 10/16/23 13:01 178/80 10/16/23 12:36 79 14 185/66 10/16/23 12:15 94 L 10/16/23 12:00 57 L 16 196/75 97 10/16/23 11:30 58 L 15 184/67 94 L 10/16/23 11:00 58 L 12 159/99 93 L 10/16/23 10:59 58 L 7 L 96 10/16/23 10:40 64 18 95 10/16/23 10:30 64 12 97 10/16/23 10:20 64 10 L 97 10/16/23 10:10 61 12 96 10/16/23 10:01 62 13 98 10/16/23 09:52 98.1 F 65 15 175/79 95 10/16/23 09:49 61 14 175/79 96 Pain Assessment - Last Documented Pain Intensity 3 Pain Scale Used 0-10 Pain Scale Intake and Output: Intake & Output 10/14/23 10/15/23 10/16/23 10/17/23 11:59 11:59 11:59 11:59 Intake Total 2854 Balance 2854 Weight 75 kg 75 kg Lab Results: Lab Results-Last 24 Hours 10/16/23 10/16/23 10/16/23 Range/Units 10:14 10:14 10:14 WBC 6.2 (4.0-10.5) x10^3/uL RBC 4.50 (4.1-5.4) x10^6/uL Hgb 13.1 (12.0-16.0) g/dL Hct 40.5 (35-47) % MCV 90.0 (78-100) fL MCH 29.1 (26-32) pg MCHC 32.3 (32-36) g/dL RDW 14.0 (11.5-14.0) % Plt Count 257 (150-450) x10^3/uL MPV 9.5 (7.5-11.0) fL Gran % 68.9 H (36.0-66.0) % Immature Gran % (Auto) 0.2 (0.00-0.4) % Nucleat RBC Rel Count 0.0 (0.00-0.1) % Eos # (Auto) 0.20 (0-0.5) x10^3/uL Immature Gran # (Auto) 0.01 (0.00-0.03) x10^3u/L Absolute Lymphs (auto) 1.03 (1.0-4.6) x10^3/uL Absolute Monos (auto) 0.63 (0.0-1.3) x10^3/uL Absolute Nucleated RBC 0.00 (0.00-0.01) x10^3u/L Lymphocytes % 16.7 L (24.0-44.0) % Monocytes % 10.2 (0.0-12.0) % Eosinophils % 3.3 (0.00-5.0) % Basophils % 0.7 (0.0-0.4) % Absolute Granulocytes 4.24 (1.4-6.9) x10^3/uL Basophils # 0.04 (0-0.4) x10^3/uL PT 10.9 (9.4-12.5) SECONDS INR 1.00 (0.8-3.0) APTT 26.7 (25.1-36.5) SECONDS Sodium 139 (137-145) mmol/L Potassium 3.0 L* (3.5-5.1) mmol/L Chloride 101 (98-107) mmol/L Carbon Dioxide 30 (22-30) mmol/L Anion Gap 10.5 (5-15) MEQ/L BUN 17 (7-17) mg/dL Creatinine 0.57 (0.52-1.04) mg/dL Estimated GFR 95.3 ML/MIN Glucose 106 (74-106) mg/dL Calcium 8.7 (8.4-10.2) mg/dL Total Bilirubin 0.80 (0.2-1.3) mg/dL AST 30 (14-36) U/L ALT 17 (0-35) U/L Alkaline Phosphatase 75 (38-126) U/L Serum Total Protein 7.2 (6.3-8.2) g/dL Albumin 4.0 (3.5-5.0) g/dL Lipase 23 (23-300) U/L Urine Color (Yellow) Urine Appearance (Clear) Urine pH (4.6-8.0) Ur Specific [place] (1.005-1.030) Urine Protein (Negative) Urine Glucose (UA) (Negative) mg/dL Urine Ketones (Negative) Urine Blood (Negative) Urine Nitrite (Negative) Urine Bilirubin (Negative) Urine Urobilinogen (0.2) mg/dL Ur Leukocyte Esterase (Negative) U Hyaline Cast (Auto) (0-2) /LPF Urine Microscopic RBC (0-5) /HPF Urine Microscopic WBC (0-5) /HPF Ur Epithelial Cells (None Seen) /HPF Urine Bacteria (None Seen) /HPF Urine Culture Reflexed (NO) 10/16/23 Range/Units 11:57 WBC (4.0-10.5) x10^3/uL RBC (4.1-5.4) x10^6/uL Hgb (12.0-16.0) g/dL Hct (35-47) % MCV (78-100) fL MCH (26-32) pg MCHC (32-36) g/dL RDW (11.5-14.0) % Plt Count (150-450) x10^3/uL MPV (7.5-11.0) fL Gran % (36.0-66.0) % Immature Gran % (Auto) (0.00-0.4) % Nucleat RBC Rel Count (0.00-0.1) % Eos # (Auto) (0-0.5) x10^3/uL Immature Gran # (Auto) (0.00-0.03) x10^3u/L Absolute Lymphs (auto) (1.0-4.6) x10^3/uL Absolute Monos (auto) (0.0-1.3) x10^3/uL Absolute Nucleated RBC (0.00-0.01) x10^3u/L Lymphocytes % (24.0-44.0) % Monocytes % (0.0-12.0) % Eosinophils % (0.00-5.0) % Basophils % (0.0-0.4) % Absolute Granulocytes (1.4-6.9) x10^3/uL Basophils # (0-0.4) x10^3/uL PT (9.4-12.5) SECONDS INR (0.8-3.0) APTT (25.1-36.5) SECONDS Sodium (137-145) mmol/L Potassium (3.5-5.1) mmol/L Chloride (98-107) mmol/L Carbon Dioxide (22-30) mmol/L Anion Gap (5-15) MEQ/L BUN (7-17) mg/dL Creatinine (0.52-1.04) mg/dL Estimated GFR ML/MIN Glucose (74-106) mg/dL Calcium (8.4-10.2) mg/dL Total Bilirubin (0.2-1.3) mg/dL AST (14-36) U/L ALT (0-35) U/L Alkaline Phosphatase (38-126) U/L Serum Total Protein (6.3-8.2) g/dL Albumin (3.5-5.0) g/dL Lipase (23-300) U/L Urine Color Yellow (Yellow) Urine Appearance Clear (Clear) Urine pH 7.0 (4.6-8.0) Ur Specific [place] 1.025 (1.005-1.030) Urine Protein Negative (Negative) Urine Glucose (UA) Negative (Negative) mg/dL Urine Ketones Negative (Negative) Urine Blood Negative (Negative) Urine Nitrite Negative (Negative) Urine Bilirubin Negative (Negative) Urine Urobilinogen 0.2 (0.2) mg/dL Ur Leukocyte Esterase Trace A (Negative) U Hyaline Cast (Auto) NONE SEEN (0-2) /LPF Urine Microscopic RBC 0-2 (0-5) /HPF Urine Microscopic WBC 0-2 (0-5) /HPF Ur Epithelial Cells None Seen (None Seen) /HPF Urine Bacteria None Seen (None Seen) /HPF Urine Culture Reflexed NO (NO) Radiology Exams: Radiology Procedures Category Date Time Status ABDOMEN AND PELVIS W CONTRAST [CT] Stat Exams 10/16/23 10:06 Completed Assessment/Plan (1) Infectious colitis Current Visit: Yes Status: Acute Assessment & Plan: -CT scan of abdomen demonstrates long segment circumferential descending and sigmoid colonic mucosal thickening suggestive of inflammatory changes in the presence of multiple diverticuli, favoring colitis versus diverticulitis. -Zosyn started in ED, will continue with levaquin/Flagyl -NPO, ADAT -IVF -Supportive care with anti-emetics and pain control -PPI -Probiotic 10/17: -Will hold surgical consult for now, recent scopes in the past year, may need to be done as OP. Due to recurrence of diverticulitis will recommend GI follow up with possible scopes -Continue PPI/abx change to oral tomorrow, possible d/c Code(s): A09 - INFECTIOUS GASTROENTERITIS AND COLITIS, UNSPECIFIED (2) Hypokalemia - Current Visit: Yes Status: Acute Code(s): E87.6 - HYPOKALEMIA -Replinished, now resolved, will continue to monitor renal/lytes daily, replenish as appropriate (3) GI bleed Current Visit: Yes Status: Acute Assessment & Plan: -Hgb stable at 13.1, will continue to monitor -INR at 1.00 -PPI 40mg BID -H&H Q8h -occult stools -Transfuse if hgb<7 -avoid NSAIDs -Consult surgery for possible scopes 10/17: -Will hold surgical consult for now, recent scopes in the past year, may need to be done as OP. Due to recurrence of diverticulitis will recommend GI follow up with possible scopes -Hgb stable, will continue to monitor Code(s): K92.2 - GASTROINTESTINAL HEMORRHAGE, UNSPECIFIED (4) History of stroke Current Visit: Yes Status: Acute Assessment & Plan: -noted, patient not on home anticoagulation, will hold ASA in the setting of rectal bleeding Code(s): Z86.73 - PRSNL HX OF TIA (TIA), AND CEREB INFRC W/O RESID DEFICITS (5) HLD (hyperlipidemia) Current Visit: Yes Status: Acute Assessment & Plan: -No statin noted on med rec Code(s): E78.5 - HYPERLIPIDEMIA, UNSPECIFIED (6) HTN (hypertension) Current Visit: Yes Status: Acute Assessment & Plan: -Continue home meds, add hydralazine prn for SBP >180 DBP >100 Code(s): I10 - ESSENTIAL (PRIMARY) HYPERTENSION (7) DOM (obstructive sleep apnea) Current Visit: Yes Status: Acute Code(s): G47.33 - OBSTRUCTIVE SLEEP APNEA (ADULT) (PEDIATRIC) (8) Fibromyalgia Current Visit: Yes Status: Acute Assessment & Plan: -noted (9) GERD (gastroesophageal reflux disease) Current Visit: Yes Status: Acute Assessment & Plan: -PPI VTE: bilateral SCD for now PPI: protonix Dispo : 1-2 days Contact: Kelly Plasencia [phone] Code(s): K21.9 - GASTRO-ESOPHAGEAL REFLUX DISEASE WITHOUT ESOPHAGITIS Additional CC's: ANILA ALY Code(s): A09 - INFECTIOUS GASTROENTERITIS AND COLITIS, UNSPECIFIED (2) Hypokalemia Current Visit: Yes Status: Acute Code(s): E87.6 - HYPOKALEMIA (3) GI bleed Current Visit: Yes Status: Acute Code(s): K92.2 - GASTROINTESTINAL HEMORRHAGE, UNSPECIFIED (4) History of stroke Current Visit: Yes Status: Acute Code(s): Z86.73 - PRSNL HX OF TIA (TIA), AND CEREB INFRC W/O RESID DEFICITS (5) HLD (hyperlipidemia) Current Visit: Yes Status: Acute Code(s): E78.5 - HYPERLIPIDEMIA, UNSPECIFIED (6) HTN (hypertension) Current Visit: Yes Status: Acute Code(s): I10 - ESSENTIAL (PRIMARY) HYPERTENSION (7) DOM (obstructive sleep apnea) Current Visit: Yes Status: Acute Code(s): G47.33 - OBSTRUCTIVE SLEEP APNEA (ADULT) (PEDIATRIC) (8) Fibromyalgia Current Visit: Yes Status: Acute (9) GERD (gastroesophageal reflux disease) Current Visit: Yes Status: Acute Code(s): K21.9 - GASTRO-ESOPHAGEAL REFLUX DISEASE WITHOUT ESOPHAGITIS
[2023-10-17 05:49] LABS: Absolute Neutrophil Ct (ANC) 2.93 x10^3/uL (1.4-6.9); BASOPHIL % 0.8 % (0.0-0.4); Basophil (Absolute #) 0.04 x10^3/uL (0-0.4); Hematocrit 35.7 % (35-47); Hemoglobin 11.4 g/dL (12.0-16.0); IMMATURE GRAN # 0.01 x10^3u/L (0.00-0.03); IMMATURE GRAN % 0.2 % (0.00-0.4); Lymphocyte (Absolute #) 1.09 x10^3/uL (1.0-4.6); Lymphocytes % 21.9 % (24.0-44.0); Mean Cell Volume 90.4 fL (78-100); Mean Corpuscular Hemoglobin 28.9 pg (26-32); Mean Corpuscular Hgb Concent. 31.9 g/dL (32-36); Mean Platelet Volume 9.4 fL (7.5-11.0); Monocytes % 14.1 % (0.0-12.0); Platelet Count 239 x10^3/uL (150-450); Red Blood Count 3.95 x10^6/uL (4.1-5.4); Red Cell Distribution Width 14.3 % (11.5-14.0)
[2023-10-17] MEDS: FLAGYL 500 MG IVPB 500 MG/100 ML BAG IV SCH ×3 (06:01→18:19)
[2023-10-17 06:19] LABS: ALBUMIN 3.4 g/dL (3.5-5.0); ANION GAP 9.9 MEQ/L (5-15); BILIRUBIN,TOTAL 0.8 mg/dL (0.2-1.3); Creatinine 1 0.62 mg/dL (0.52-1.04); EST GLOMERULAR FILTRATION RATE 93.4 ML/MIN; Potassium 3.3 mmol/L (3.5-5.1); Total Protein 6.3 g/dL (6.3-8.2)
[2023-10-17] MEDS: NORCO 10-325 MG PO PRN ×4 (06:50→21:13)
[2023-10-17] MEDS ORDERED: Klor Con PO ONE (07:37)
[2023-10-17] MEDS ORDERED: Levofloxacin 500MG/100ML D5W 500 MG/100 ML BAG IV SCH (10:00)
[2023-10-17] MEDS ORDERED: NON-FORMULARY ITEM (Lisinopril [Lisinopril] 40 MG Tablet) PO SCH (10:00)
[2023-10-17] MEDS: Inderal PO SCH ×2 (10:05→21:12)
[2023-10-17] MEDS: PROTONIX 40 MG IV IV SCH ×2 (10:05→21:14)
[2023-10-17] MEDS: MAXIPIME 1 GM** 1 G in Dextrose 5%/Water IV Soln. 100ML PLUS BAG 100 ML IV SCH ×2 (10:05→21:14)
[2023-10-17] MEDS: Acidophilus TABLET PO SCH (10:05)
[2023-10-17] MEDS: Zestril 20 MG PO SCH (10:05)
[2023-10-17] MEDS: Ocuvite Tablet PO SCH ×2 (10:05→21:12)
[2023-10-17] MEDS: Sodium Chloride 0.9% 1000 ML 1,000 ML IV SCH ×2 (11:53→23:11)
--- NOTE | 2023-10-17 14:24 | PCM.NOTE ---
Date and Time: 10/17/23 1421 Subjective Assessment: per chart review and d/w RN. please refer to dictated consult from yesterday alok. s: no acute issues overnight. no additional bms since yesterday. pain minimal. no n/v. kiki CLD. o vitals stable. hgb slight decrease. a/p: uncomplicated dexcending/sigmoid colitis favor diverticulitis vs ischemic, no additional bms or bloody bms consistent with the imaging of uncomplicated colitis. -no plan for any surgical intervention. -agree with abx course. -f/u in office 2 weeks. she will likely need c scope in 6-8 weeks once colitis resolves. -call if there is any worsening or repeat surgical concerns. OBJECTIVE DATA Vital Signs: Vital Signs - 24 hr Temp Pulse Resp BP Pulse Ox 10/17/23 12:00 97.6 F 71 16 172/83 94 L 10/17/23 08:00 76 16 95 10/17/23 07:30 97.6 F 73 16 179/74 95 10/17/23 04:00 97.4 F 68 18 163/70 93 L 10/17/23 00:00 16 10/16/23 23:28 97.2 F 56 L 16 170/72 95 10/16/23 20:00 97.6 F 73 18 159/72 94 L 10/16/23 17:27 59 L 16 92 L 10/16/23 16:39 97.6 F 59 L 16 164/69 92 L 10/16/23 15:44 97.6 F 59 L 16 164/69 92 L Pain Assessment - Last Documented Pain Intensity 0 Pain Scale Used 0-10 Pain Scale Intake and Output: Intake & Output 10/15/23 10/16/23 10/17/23 10/18/23 11:59 11:59 11:59 11:59 Intake Total 3214 240 Balance 3214 240 Weight 75 kg 75 kg Lab Results: Lab Results-Last 24 Hours 10/17/23 10/17/23 10/17/23 Range/Units 05:38 05:38 05:38 WBC 5.0 (4.0-10.5) x10^3/uL RBC 3.95 L (4.1-5.4) x10^6/uL Hgb 11.4 L (12.0-16.0) g/dL Hct 35.7 (35-47) % MCV 90.4 (78-100) fL MCH 28.9 (26-32) pg MCHC 31.9 L (32-36) g/dL RDW 14.3 H (11.5-14.0) % Plt Count 239 (150-450) x10^3/uL MPV 9.4 (7.5-11.0) fL Gran % 59.0 (36.0-66.0) % Immature Gran % (Auto) 0.2 (0.00-0.4) % Nucleat RBC Rel Count 0.0 (0.00-0.1) % Eos # (Auto) 0.20 (0-0.5) x10^3/uL Immature Gran # (Auto) 0.01 (0.00-0.03) x10^3u/L Absolute Lymphs (auto) 1.09 (1.0-4.6) x10^3/uL Absolute Monos (auto) 0.70 (0.0-1.3) x10^3/uL Absolute Nucleated RBC 0.00 (0.00-0.01) x10^3u/L Lymphocytes % 21.9 L (24.0-44.0) % Monocytes % 14.1 H (0.0-12.0) % Eosinophils % 4.0 (0.00-5.0) % Basophils % 0.8 (0.0-0.4) % Absolute Granulocytes 2.93 (1.4-6.9) x10^3/uL Basophils # 0.04 (0-0.4) x10^3/uL Sodium 138 (137-145) mmol/L Potassium 3.3 L (3.5-5.1) mmol/L Chloride 105 (98-107) mmol/L Carbon Dioxide 26 (22-30) mmol/L Anion Gap 9.9 (5-15) MEQ/L BUN 11 (7-17) mg/dL Creatinine 0.62 (0.52-1.04) mg/dL Estimated GFR 93.4 ML/MIN Glucose 92 (74-106) mg/dL Calcium 8.0 L (8.4-10.2) mg/dL Magnesium 2.1 (1.6-2.3) mg/dL Total Bilirubin 0.80 (0.2-1.3) mg/dL AST 44 H (14-36) U/L ALT 25 (0-35) U/L Alkaline Phosphatase 72 (38-126) U/L Serum Total Protein 6.3 (6.3-8.2) g/dL Albumin 3.4 L (3.5-5.0) g/dL 10/17/23 Range/Units 09:29 WBC (4.0-10.5) x10^3/uL RBC (4.1-5.4) x10^6/uL Hgb (12.0-16.0) g/dL Hct (35-47) % MCV (78-100) fL MCH (26-32) pg MCHC (32-36) g/dL RDW (11.5-14.0) % Plt Count (150-450) x10^3/uL MPV (7.5-11.0) fL Gran % (36.0-66.0) % Immature Gran % (Auto) (0.00-0.4) % Nucleat RBC Rel Count (0.00-0.1) % Eos # (Auto) (0-0.5) x10^3/uL Immature Gran # (Auto) (0.00-0.03) x10^3u/L Absolute Lymphs (auto) (1.0-4.6) x10^3/uL Absolute Monos (auto) (0.0-1.3) x10^3/uL Absolute Nucleated RBC (0.00-0.01) x10^3u/L Lymphocytes % (24.0-44.0) % Monocytes % (0.0-12.0) % Eosinophils % (0.00-5.0) % Basophils % (0.0-0.4) % Absolute Granulocytes (1.4-6.9) x10^3/uL Basophils # (0-0.4) x10^3/uL Sodium (137-145) mmol/L Potassium 3.7 (3.5-5.1) mmol/L Chloride (98-107) mmol/L Carbon Dioxide (22-30) mmol/L Anion Gap (5-15) MEQ/L BUN (7-17) mg/dL Creatinine (0.52-1.04) mg/dL Estimated GFR ML/MIN Glucose (74-106) mg/dL Calcium (8.4-10.2) mg/dL Magnesium (1.6-2.3) mg/dL Total Bilirubin (0.2-1.3) mg/dL AST (14-36) U/L ALT (0-35) U/L Alkaline Phosphatase (38-126) U/L Serum Total Protein (6.3-8.2) g/dL Albumin (3.5-5.0) g/dL Radiology Exams: Radiology Procedures Category Date Time Status ABDOMEN AND PELVIS W CONTRAST [CT] Stat Exams 10/16/23 10:06 Completed
[2023-10-17] MEDS: NEURONTIN PO SCH (21:12)
[2023-10-17] MEDS: ceLEXa 20 MG PO SCH (21:12)
[2023-10-18] MEDS: FLAGYL 500 MG IVPB 500 MG/100 ML BAG IV SCH ×2 (00:24→06:21)
[2023-10-18] MEDS: NORCO 10-325 MG PO PRN ×3 (03:01→11:06)
[2023-10-18] MEDS ORDERED: BENADRYL 25 MG CAPSULE PO ONE (03:47)
[2023-10-18 04:04] VITALS: RESP 18
[2023-10-18 05:07] LABS: Absolute Neutrophil Ct (ANC) 2.75 x10^3/uL (1.4-6.9); BASOPHIL % 0.9 % (0.0-0.4); Basophil (Absolute #) 0.04 x10^3/uL (0-0.4); Eosinophil % 4.2 % (0.00-5.0); Eosinophil (Absolute #) 0.18 x10^3/uL (0-0.5); Hematocrit 36.5 % (35-47); Hemoglobin 11.4 g/dL (12.0-16.0); IMMATURE GRAN # 0.01 x10^3u/L (0.00-0.03); IMMATURE GRAN % 0.2 % (0.00-0.4); Lymphocytes % 18.6 % (24.0-44.0); Mean Cell Volume 92.6 fL (78-100); Mean Corpuscular Hemoglobin 28.9 pg (26-32); Mean Corpuscular Hgb Concent. 31.2 g/dL (32-36); Mean Platelet Volume 10.1 fL (7.5-11.0); Monocyte (Absolute #) 0.51 x10^3/uL (0.0-1.3); Monocytes % 11.9 % (0.0-12.0); Neutrophil % 64.2 % (36.0-66.0); Platelet Count 203 x10^3/uL (150-450); Red Blood Count 3.94 x10^6/uL (4.1-5.4); White Blood Count 4.3 x10^3/uL (4.0-10.5)
[2023-10-18 05:48] LABS: ALBUMIN 3.6 g/dL (3.5-5.0); ANION GAP 10.8 MEQ/L (5-15); Calcium 8.1 mg/dL (8.4-10.2); Creatinine 1 0.59 mg/dL (0.52-1.04); EST GLOMERULAR FILTRATION RATE 94.5 ML/MIN; Potassium 3.4 mmol/L (3.5-5.1); Total Protein 6.6 g/dL (6.3-8.2)
[2023-10-18] MEDS ORDERED: Klor Con PO ONE (07:57)
[2023-10-18] MEDS ORDERED: Augmentin 875-125 Tablet PO SCH ×2 (08:00→10:00)
[2023-10-18] MEDS: PROTONIX 40 MG IV IV SCH (09:27)
[2023-10-18] MEDS: Inderal PO SCH (09:27)
[2023-10-18] MEDS: Zestril 20 MG PO SCH (09:28)
[2023-10-18] MEDS: Acidophilus TABLET PO SCH (09:28)
[2023-10-18] MEDS: Ocuvite Tablet PO SCH (09:29)
[2023-10-18] MEDS ORDERED: Levofloxacin 500 MG Tablet PO SCH (10:00)
--- NOTE | 2023-10-18 10:01 | PCM.DS ---
Discharge Summary Date of Admission: 10/16/23 13:04 Date of Discharge: 10/18/23 Admitting Physician: DIEGO COLON MD Primary Care Provider: ANILA ALY <HARLEEN PRADHAN - Last Filed: 10/18/23 11:47> Date of Admission: 10/16/23 13:04 Date of Discharge: 10/18/23 Admitting Physician: DIEGO COLON MD Primary Care Provider: ANILA ALY <EDSON BULL - Last Filed: 10/18/23 21:10> Allergies <HARLEEN PRADHAN - Last Filed: 10/18/23 11:47> <EDSON BULL - Last Filed: 10/18/23 21:10> Allergies hazelnut Allergy (Severe, Verified 10/16/23 09:48) Tightness of Throat Tetracyclines Allergy (Severe, Verified 10/16/23 09:48) Anaphylactic Reaction tramadol Allergy (Severe, Verified 10/16/23 09:48) Shortness of Breath abatacept [From Orencia] Allergy (Intermediate, Verified 10/16/23 09:48) Itching ciprofloxacin Allergy (Intermediate, Verified 10/16/23 14:11) Rash hydroxychloroquine sulfate [From Plaquenil] Allergy (Intermediate, Verified 10/16/23 09:48) Rash phenazopyridine HCl [From Pyridium] Allergy (Intermediate, Verified 10/16/23 09:48) Rash Sulfa (Sulfonamide Antibiotics) Allergy (Intermediate, Verified 10/16/23 09:48) Rash dexamethasone Adverse Reaction (Intermediate, Verified 10/16/23 09:48) muscle weakness can tolerate prednisone fine oxycodone HCl [From OxyContin] Adverse Reaction (Intermediate, Verified 10/16/23 09:48) HALLUCINATION Hospital Summary - Hospital Course Hospital Course: is a 73 year old femal with a pmhx of TIA, HLD, HTN, DOM, fibromyalgia, RA, GERD,microscopic colitis, and GB disease who presented to ED 10/16/23 with complaints of diffuse lower abdominal pain greater in the LUQ and LLQ. Patient states she was in her usual state of health until yesterday when started to experience the abdominal pain, nausea, and diarrhea.That morning she noticed a moderate amount of bright red blood in her stool with clots, and later she noticed her stools were dark. She has had a similar episode about one year ago where she was diagnosed with micro-colitis. She states she saw Dr. Reardon in [place] and had a colonoscopy with the colitis noted as well as polyps but otherwise unremarkable. CT of the abdomen and pelvis demonstrated long segment circumferential descending and sigmoid colonic mucosal thickening suggestive of inflammatory changes in the presence of multiple diverticuli, favoring colitis versus diverticulitis. Patient does have history of microscopic colitis. Of note, no abscess or free air/ signs of perforation noted on imaging.. Patient was placed on antibiotics and protonix while admitted. She is feeling much better and has not had any bloody or loose stools overnight. She is wanting to go home today. General surgery would like her to f/u OP in 2 weeks. Will continue antibiotics OP. She denies any further c/o at this time. - Vitals & Intake/Output Vital Signs: Vital Signs Temperature 97.0 F 10/18/23 07:06 Pulse Rate 55 L 10/18/23 07:06 Respiratory Rate 18 10/18/23 08:00 Blood Pressure 160/74 10/18/23 07:06 O2 Sat by Pulse Oximetry 93 L 10/18/23 07:06 Intake & Output: Intake & Output 10/15/23 10/16/23 10/17/23 10/18/23 11:59 11:59 11:59 11:59 Intake Total 3214 4365 Balance 3214 4365 Weight 75 kg 75 kg - Lab Result Diagrams: 10/18/23 04:45 10/18/23 04:32 Lab Results-Last 24 Hrs: Lab Results-Last 24 Hours 10/17/23 10/18/23 10/18/23 Range/Units 09:29 04:32 04:45 WBC 4.3 (4.0-10.5) x10^3/uL RBC 3.94 L (4.1-5.4) x10^6/uL Hgb 11.4 L (12.0-16.0) g/dL Hct 36.5 (35-47) % MCV 92.6 (78-100) fL MCH 28.9 (26-32) pg MCHC 31.2 L (32-36) g/dL RDW 14.0 (11.5-14.0) % Plt Count 203 (150-450) x10^3/uL MPV 10.1 (7.5-11.0) fL Gran % 64.2 (36.0-66.0) % Immature Gran % (Auto) 0.2 (0.00-0.4) % Nucleat RBC Rel Count 0.0 (0.00-0.1) % Eos # (Auto) 0.18 (0-0.5) x10^3/uL Immature Gran # (Auto) 0.01 (0.00-0.03) x10^3u/L Absolute Lymphs (auto) 0.80 L (1.0-4.6) x10^3/uL Absolute Monos (auto) 0.51 (0.0-1.3) x10^3/uL Absolute Nucleated RBC 0.00 (0.00-0.01) x10^3u/L Lymphocytes % 18.6 L (24.0-44.0) % Monocytes % 11.9 (0.0-12.0) % Eosinophils % 4.2 (0.00-5.0) % Basophils % 0.9 (0.0-0.4) % Absolute Granulocytes 2.75 (1.4-6.9) x10^3/uL Basophils # 0.04 (0-0.4) x10^3/uL Sodium 137 (137-145) mmol/L Potassium 3.7 3.4 L (3.5-5.1) mmol/L Chloride 106 (98-107) mmol/L Carbon Dioxide 24 (22-30) mmol/L Anion Gap 10.8 (5-15) MEQ/L BUN 10 (7-17) mg/dL Creatinine 0.59 (0.52-1.04) mg/dL Estimated GFR 94.5 ML/MIN Glucose 86 (74-106) mg/dL Calcium 8.1 L (8.4-10.2) mg/dL Total Bilirubin 1.00 (0.2-1.3) mg/dL AST 80 H (14-36) U/L ALT 43 H (0-35) U/L Alkaline Phosphatase 93 (38-126) U/L Serum Total Protein 6.6 (6.3-8.2) g/dL Albumin 3.6 (3.5-5.0) g/dL - Radiology Exams Ordered Rad Exams-Entire Visit: Radiology Procedures Category Date Time Status ABDOMEN AND PELVIS W CONTRAST [CT] Stat Exams 10/16/23 10:06 Completed - Procedures and Test Procedures and Tests throughout Hospitalization: Therapy Orders & Screens 10/16/23 13:21 PT Eval & Treat ( Order) ONCE Reason for Eval:: weakness Diagnosis: Abdominal pain Respiratory Therapy Consult ONCE Comment: Reason For Exam: Diagnosis: Abdominal pain OT Eval and Treat ( Order) ONCE Comment: Physician Instructions: Reason For Exam: Diagnosis: Abdominal pain 10/16/23 17:29 BiPap/CPAP ROUTINE Comment: Diagnosis: Abdominal pain 10/17/23 08:00 Respiratory Therapy Assessment DAILY Comment: Diagnosis: Abdominal pain <HARLEEN PRADHAN - Last Filed: 10/18/23 11:47> - Vitals & Intake/Output Vital Signs: Vital Signs Temperature 98.5 F 10/18/23 11:50 Pulse Rate 62 10/18/23 11:50 Respiratory Rate 18 10/18/23 12:00 Blood Pressure 178/74 10/18/23 11:50 O2 Sat by Pulse Oximetry 92 L 10/18/23 11:50 Intake & Output: Intake & Output 10/16/23 10/17/23 10/18/23 10/19/23 11:59 11:59 11:59 11:59 Intake Total 3214 4365 Balance 3214 4365 Weight 75 kg 75 kg - Lab Result Diagrams: 10/18/23 04:45 10/18/23 04:32 Lab Results-Last 24 Hrs: Lab Results-Last 24 Hours 10/18/23 10/18/23 Range/Units 04:32 04:45 WBC 4.3 (4.0-10.5) x10^3/uL RBC 3.94 L (4.1-5.4) x10^6/uL Hgb 11.4 L (12.0-16.0) g/dL Hct 36.5 (35-47) % MCV 92.6 (78-100) fL MCH 28.9 (26-32) pg MCHC 31.2 L (32-36) g/dL RDW 14.0 (11.5-14.0) % Plt Count 203 (150-450) x10^3/uL MPV 10.1 (7.5-11.0) fL Gran % 64.2 (36.0-66.0) % Immature Gran % (Auto) 0.2 (0.00-0.4) % Nucleat RBC Rel Count 0.0 (0.00-0.1) % Eos # (Auto) 0.18 (0-0.5) x10^3/uL Immature Gran # (Auto) 0.01 (0.00-0.03) x10^3u/L Absolute Lymphs (auto) 0.80 L (1.0-4.6) x10^3/uL Absolute Monos (auto) 0.51 (0.0-1.3) x10^3/uL Absolute Nucleated RBC 0.00 (0.00-0.01) x10^3u/L Lymphocytes % 18.6 L (24.0-44.0) % Monocytes % 11.9 (0.0-12.0) % Eosinophils % 4.2 (0.00-5.0) % Basophils % 0.9 (0.0-0.4) % Absolute Granulocytes 2.75 (1.4-6.9) x10^3/uL Basophils # 0.04 (0-0.4) x10^3/uL Sodium 137 (137-145) mmol/L Potassium 3.4 L (3.5-5.1) mmol/L Chloride 106 (98-107) mmol/L Carbon Dioxide 24 (22-30) mmol/L Anion Gap 10.8 (5-15) MEQ/L BUN 10 (7-17) mg/dL Creatinine 0.59 (0.52-1.04) mg/dL Estimated GFR 94.5 ML/MIN Glucose 86 (74-106) mg/dL Calcium 8.1 L (8.4-10.2) mg/dL Total Bilirubin 1.00 (0.2-1.3) mg/dL AST 80 H (14-36) U/L ALT 43 H (0-35) U/L Alkaline Phosphatase 93 (38-126) U/L Serum Total Protein 6.6 (6.3-8.2) g/dL Albumin 3.6 (3.5-5.0) g/dL - Procedures and Test Procedures and Tests throughout Hospitalization: Therapy Orders & Screens 10/16/23 13:21 PT Eval & Treat (MD Order) ONCE Reason for Eval:: weakness Diagnosis: Abdominal pain Respiratory Therapy Consult ONCE Comment: Reason For Exam: Diagnosis: Abdominal pain OT Eval and Treat ( Order) ONCE Comment: Physician Instructions: Reason For Exam: Diagnosis: Abdominal pain 10/16/23 17:29 BiPap/CPAP ROUTINE Comment: Diagnosis: Abdominal pain 10/17/23 08:00 Respiratory Therapy Assessment DAILY Comment: Diagnosis: Abdominal pain <CASSIUSANAIDSHANNAEDSON - Last Filed: 10/18/23 21:10> Discharge Exam General Appearance: no apparent distress, alert Neurologic Exam: alert, oriented x 3, cooperative, normal mood/affect, nml cerebellar function, sensation nml, No motor deficits Eye Exam: PERRL, EOMI, eyes nml inspection Ears, Nose, Throat Exam: normal ENT inspection, pharynx normal, moist mucous membranes Neck Exam: normal inspection, non-tender, supple, full range of motion Respiratory Exam: normal breath sounds, lungs clear, No respiratory distress Cardiovascular Exam: regular rate/rhythm, normal heart sounds Gastrointestinal/Abdomen Exam: soft, No tenderness, No mass Pelvic Exam: deferred Rectal Exam: deferred Back Exam: normal inspection, normal range of motion, No CVA tenderness, No vertebral tenderness Extremity Exam: normal inspection, normal range of motion Skin Exam: normal color, warm, dry <HARLEEN PRADHAN - Last Filed: 10/18/23 11:47> Final Diagnosis/Problem List - Final Discharge Diagnosis/Problem (1) Infectious colitis Status: Acute Code(s): A09 - INFECTIOUS GASTROENTERITIS AND COLITIS, UNSPECIFIED (2) Hypokalemia Status: Acute Code(s): E87.6 - HYPOKALEMIA (3) GI bleed Status: Acute Code(s): K92.2 - GASTROINTESTINAL HEMORRHAGE, UNSPECIFIED (4) History of stroke Status: Acute Code(s): Z86.73 - PRSNL HX OF TIA (TIA), AND CEREB INFRC W/O RE DAVID DEFICITS (5) HLD (hyperlipidemia) Status: Acute Code(s): E78.5 - HYPERLIPIDEMIA, UNSPECIFIED (6) HTN (hypertension) Status: Acute Code(s): I10 - ESSENTIAL (PRIMARY) HYPERTENSION (7) DOM (obstructive sleep apnea) Status: Acute Code(s): G47.33 - OBSTRUCTIVE SLEEP APNEA (ADULT) (PEDIATRIC) (8) Fibromyalgia Status: Acute (9) GERD (gastroesophageal reflux disease) Status: Acute Assessment & Plan: (1) Infectious colitis Current Visit: Yes Status: Acute Assessment & Plan: -CT scan of abdomen demonstrates long segment circumferential descending and sigmoid colonic mucosal thickening suggestive of inflammatory changes in the presence of multiple diverticuli, favoring colitis versus diverticulitis. -Zosyn started in ED, will continue with levaquin/Flagyl -NPO, ADAT -IVF -Supportive care with anti-emetics and pain control -PPI -Probiotic 10/17: -Will hold surgical consult for now, recent scopes in the past year, may need to be done as OP. Due to recurrence of diverticulitis will recommend GI follow up with possible scopes -Continue PPI/abx change to oral tomorrow, possible d/c 10/18/23 -GS would like pt to f/u in 2 weeks. - antibiotics changed to PO Code(s): A09 - INFECTIOUS GASTROENTERITIS AND COLITIS, UNSPECIFIED (2) Hypokalemia - K+ 3.4- replaced - will d/c with OP K+ Current Visit: Yes Status: Acute Code(s): E87.6 - HYPOKALEMIA -Replinished, now resolved, will continue to monitor renal/lytes daily, replenish as appropriate (3) GI bleed Current Visit: Yes Status: Acute Assessment & Plan: -Hgb stable at 13.1, will continue to monitor -INR at 1.00 -PPI 40mg BID -H&H Q8h -occult stools -Transfuse if hgb<7 -avoid NSAIDs -Consult surgery for possible scopes 10/17: -Will hold surgical consult for now, recent scopes in the past year, may need to be done as OP. Due to recurrence of diverticulitis will recommend GI follow up with possible scopes -Hgb stable, will continue to monitor 10/18 - Hgb stable 11.4 Code(s): K92.2 - GASTROINTESTINAL HEMORRHAGE, UNSPECIFIED (4) History of stroke Current Visit: Yes Status: Acute Assessment & Plan: -noted, patient not on home anticoagulation, will hold ASA in the setting of rectal bleeding Code(s): Z86.73 - PRSNL HX OF TIA (TIA), AND CEREB INFRC W/O RESID DEFICITS (5) HLD (hyperlipidemia) Current Visit: Yes Status: Acute Assessment & Plan: -No statin noted on med rec Code(s): E78.5 - HYPERLIPIDEMIA, UNSPECIFIED (6) HTN (hypertension) Current Visit: Yes Status: Acute Assessment & Plan: -Continue home meds, add hydralazine prn for SBP >180 DBP >100 Code(s): I10 - ESSENTIAL (PRIMARY) HYPERTENSION (7) DOM (obstructive sleep apnea) - Continue Cpap at noc Current Visit: Yes Status: Acute Code(s): G47.33 - OBSTRUCTIVE SLEEP APNEA (ADULT) (PEDIATRIC) (8) Fibromyalgia Current Visit: Yes Status: Acute Assessment & Plan: -noted- continue gabapentin (9) GERD (gastroesophageal reflux disease) Current Visit: Yes Status: Acute Assessment & Plan: -PPI Code(s): K21.9 - GASTRO-ESOPHAGEAL REFLUX DISEASE WITHOUT ESOPHAGITIS <HARLEEN PRADHAN - Last Filed: 10/18/23 11:47> - Discharge Discharge Date: 10/18/23 <HARLEEN PRADHAN - Last Filed: 10/18/23 11:47> <EDSON BULL - Last Filed: 10/18/23 21:10> - Discharge Disposition: Home, Self-Care Condition: Stable Prescriptions: New Amox Tr/Potass Clav. 875 mg [Augmentin 875-125 Tablet] 875 mg PO Q12HT 10 Days #20 tablet Metronidazole 500 mg [Flagyl 500 MG] 500 mg PO Q8HT 10 Days #30 tablet PANTOPRAZOLE 40 mg Tablet [Protonix 40MG Tablet] 40 mg PO QAM 30 Days #30 tab Ondansetron ODT 4 MG [Zofran Odt 4 mg] 4 mg PO Q6H PRN PRN #10 tablet PRN Reason: Nausea Potassium Chloride Tab* [Klor Con] 20 meq PO BID 3 Days #12 tablet Continue Hydrocodone/Acetaminophen [Hydrocodon-Acetaminophn 10-325] 1 tab PO Q6HPRN PRN PRN Reason: Pain Gabapentin [Neurontin] 600 mg PO HS Aspirin EC 81 mg [Ecotrin 81 mg] 81 mg PO DAILY Aflibercept [Eylea] 2 mg IO UD Propranolol HCl [Inderal ] 80 mg PO BID Vit C/E/Zn/Coppr/Lutein/Zeaxan [Preservision Areds 2 Softgel] 1 cap PO BID Citalopram Hydrobromide [Celexa] 20 mg PO HS lisinopriL [Lisinopril] 40 mg PO DAILY Hydrochlorothiazide 25 mg [hydroDIURIL 25 MG] 25 mg PO DAILY Instructions: Colitis Additional Instructions: If you can follow up with your GI physician in 2 weeks please cancel surgery appointment. Follow up with: ANILA ALY [Primary Care Provider] - 10/22/23 2:05 pm CHEL EDWARDS MD [ACTIVE STAFF] - 11/11/23 8:40 am (Approx 2 weeks after discharge pt needs to be seen by someone in the [facility] group) DEIDRE Encounter - DEIDRE Encounter Attestation DEIDRE Encounter Attestation: "FreddypersonallyseenandSTEPHANIE Daniels andhavediscussed pertinent aspects of their care with Harleen Oseguera-Florenceteramyranda agree with the history, physical exam (any modifications based on my personal exam will be noted below), assessment, and plan as outlined in original note. Please see immediately below for my summary of findings and additional assessment and plan along with any meaningful corrections/explanations to the Subjective/Objective portions of the DEIDRE note will be noted." My portion of the encounter took place via telemedicine. <EDSON BULL - Last Filed: 10/18/23 21:10>
[2023-10-18 11:51] VITALS: BP 178/74; PULSE 62; TEMP 98.5; O2SAT 92
[2023-10-18] MEDS ORDERED: Flagyl 500 MG PO SCH (14:00)
--- NOTE | 2023-10-18 15:04 | CONS ---
CONSULT DATE: 10/16/2023 REASON FOR CONSULT: Episode of bleeding secondary to sigmoid diverticulosis/diverticulitis. HISTORY: The patient has not had previous episode. She had a colonoscopy a little over a year ago that was reasonable, nothing major found. She has done well in the last in the last year. She woke acutely in the morning yesterday at 0830 hours and had painful bloody stool. She had discomfort in the left lower quadrant since. She is still having discomfort there. She is having some tenderness there. She had a second episode of bleeding after coming to the hospital that was just about as intense. Since emergency room, she is not having more episodes. Her hemoglobin is satisfactory. Her is present. She is 73. Luis discussion. Her CT scan reviewed consistent with sigmoid diverticulitis, circumferential thickening of the colon in this area. PHYSICAL EXAMINATION: She has a little bit of guarding in the left lower quadrant. She has mild abdominal distention. She did not appear to be toxic. Her vital signs have been stable. IMPRESSION: This certainly seems like a diverticular bleed. She should be able to get nurtured through this providing fluids, IV antibiotics and GI rest. Even though she had a scope a year ago, we probably ought to do interval scope here in six to eight weeks once she gets through this episode. We will follow along with medical. I would think this episode would clear. She probably needs a full or even a little more than a full dose of antibiotic treatment for seven to ten days.
== END 2023-10-18 12:40 | disposition home or self-care (01) ==
LOC: ED 09:12 → MED SURG 13:04
PROVIDERS: ADMIT Internal Medicine; ATTEND Internal Medicine
DX: A09 Infectious gastroenteritis and colitis, unspecified (principal); E87.6 Hypokalemia; K92.2 Gastrointestinal hemorrhage, unspecified; Z86.73 Personal history of transient ischemic attack (TIA), and cerebral infarction without residual deficits; E78.5 Hyperlipidemia, unspecified; I10 Essential (primary) hypertension; G47.33 Obstructive sleep apnea (adult) (pediatric); K21.9 Gastro-esophageal reflux disease without esophagitis; M79.7 Fibromyalgia; Z79.899 Other long term (current) drug therapy; Z20.828 Contact with and (suspected) exposure to other viral communicable diseases
CPT/HCPCS: 36000; 36415; 74177; 80053; 81001; 83690; 83735; 84132; 85025; 85610; 85730; 94660; 96374; 96376; 99285; Q3014; G0378; J0692; J2405; J3010; A9270-GY